=== PATIENT | female | born 1955 | race Caucasian/White ===

== ENCOUNTER 2016-07-20 23:40 | Inpatient (IN) ==
[2016-07-21] MEDS ORDERED: 0.9 % SODIUM CHLORIDE 1,000 ML IV ONE (00:02)
[2016-07-21 00:59] LABS: Basophils # (Auto) 0.1 K/mcL (0.0-0.3); Basophils % (Auto) 0.6 % (0.0-2.0); Eosinophils # (Auto) 0.1 K/mcL (0.0-0.7); Granulocytes % (Auto) 63.3 % (38.0-78.0); Lymphocytes # (Auto) 2.6 K/mcL (1.5-4.8); Lymphocytes % (Auto) 26.7 % (15.5-49.0); Mean Cell Volume 86.5 fL (80.0-100.0); Mean Corpuscular HGB Conc 33.8 g/dL (31.0-36.0); Mean Corpuscular Hemoglobin 29.2 pg (26.0-34.0); Monocytes # (Auto) 0.8 K/mcL (0.1-0.9); Monocytes % (Auto) 8.4 % (1.0-12.0); Platelet Count 290 K/mcL (140-440); Red Cell Distribution Width 14.6 % (11.5-14.5)
[2016-07-21 01:11] LABS: ALT/SGPT 19 U/l (0-40); Albumin 3.8 gm/dL (3.2-5.2); Albumin/Globulin Ratio 1.7 (1.0-2.3); Alkaline Phosphatase 84 U/L (39-117); Blood Urea Nitrogen 18 mg/dl (6-20)
[2016-07-21 02:36] LABS: Appearance,Urine CLEAR; Bilirubin,Urine NEG (NEG); Color,Urine YELLOW; Glucose,Urine (UA) NEGATIVE (NEG); Leukocyte Esterase,Urine NEG /uL (NEG); Nitrate,Urine NEG (NEG); Protein,Urine NEG (NEG); Specific Gravity,Urine 1.019 (1.000-1.035); Urine Blood NEG mg/dL (<0.03); Urobilinogen,Urine NEG (NEG)
[2016-07-21] MEDS ORDERED: ONDANSETRON 4 MG/2 ML VIAL IV PRN (04:27)
[2016-07-21] MEDS ORDERED: MAGNESIUM HYDROXIDE 30 ML ORAL.SUSP PO PRN (04:27)
[2016-07-21] MEDS ORDERED: DOCUSATE SODIUM 100 MG CAPSULE PO PRN (04:27)
[2016-07-21] MEDS ORDERED: POTASSIUM CHLORIDE 20 MEQ/10 ML VIAL IV ONE (04:58)
[2016-07-21] MEDS: POTASSIUM CHLORIDE 20 MEQ in 0.45 % SODIUM CHLORIDE 1,000 ML IV SCH ×2 (05:30→16:45)
[2016-07-21] MEDS: 0.9 % SODIUM CHLORIDE 10 ML SYRINGE IV SCH ×3 (06:10→20:36)
[2016-07-21 08:06] LABS: ALT/SGPT 17 U/l (0-40); Albumin 3.7 gm/dL (3.2-5.2); Albumin/Globulin Ratio 1.7 (1.0-2.3); Alkaline Phosphatase 80 U/L (39-117); Bilirubin,Direct < 0.2 mg/dL (0.0-0.3); Blood Urea Nitrogen 16 mg/dl (6-20); Gamma Glutamyl Transpeptidase 15 U/L (5-36); Magnesium 2.5 mg/dL (1.6-2.5); Uric Acid 0.8 mg/dL (2.5-8.0)
--- NOTE | 2016-07-21 08:16 | XRay Report ---
HISTORY: Reason for Exam:Weakness FINDINGS: The lungs are clear. The heart size and pulmonary vasculature are normal. The mediastinum and jerman are normal. Patient is leaning to the right which is probably due to patient positioning and less likely scoliosis in the lumbar spine. IMPRESSION: Normal exam Interpreted and Authenticated by: Will Charles 07/21/16
[2016-07-21] MEDS ORDERED: POTASSIUM CHLORIDE 40 MEQ in DEXTROSE 5% IN WATER 500 ML IV ONE (08:46)
[2016-07-21] MEDS: HEPARIN 5,000 UNIT/ML VIAL SQ SCH ×2 (09:09→20:36)
[2016-07-21] MEDS: ACETAMINOPHEN 325 MG TABLET PO PRN ×3 (09:13→23:42)
--- NOTE | 2016-07-21 10:18 | Internal Med History&Physical ---
Medical - H&P: HPI Patient information: Note initiated : 07/21/16 at 10:16 am Service Date, if different from initiated Date: Pt evaluated around 0440 this am. I could not document due to multiple computers not working, system would not let me log on. Patient: Stephanie Bellamy 61 y/o F admitted on 07/21/16 for Increased Weakness. History of present illness: Ms. Bellamy is a 61 year old female he was admitted around 4:00 this morning. We were having computer difficulties, and I was unable to access our EMR at that time. this patient was diagnosed with MS between 10 and 15 years ago. She is normally followed by Dr. Akins, of neurology. Herbramsesfriend of many years, whom she lives with, brought her to the emergency room last night, saying she had become increasingly weak over the last 3 days and he could no longer manage getting her in and out of bed. The patient presented as rather confused. It took her a long time to answer questions, and it is not clear that her questions are reliable. She agrees that her weakness has been worse for the last 3 or so days. She says she has had a headache for the last day or so, encompassing her whole head. She admits that she has been sitting outside lately, to smoke cigarettes and agrees that being out in the heat tends to make her feel worse.Otherwise, she could not recall fever or chills changes in visionor new ear symptoms, sore throat or cough, chest pain or palpitations, shortness of breath or wheezing, abdominal pain, nausea or vomiting, diarrhea or constipation. She has had bladder incontinence, but otherwise denies dysuria. eR evaluation showed low potassium, but no other obvious infection or specific cause for her symptoms. her significant other recently had spine surgery, and cannot manage carrying her full weight in caring for her at home. The patient was admitted for observation, to try to find the cause of her symptoms, and to treat accordingly. past medical history: Multiple sclerosis for at least [address] Akins. Depression,anxiety History of seizures Hypothyroidism Reported memory loss Bladder dysfunction -neurogenic bladder Ongoing tobacco abuse Past history of alcohol abuse Cervical dysplasia Menopause. current medications: They brought in a basket of pills. keppra 1000 mg twice a day Baclofen 20 mg1-1/2 tabs3 times a day Mirtazapine 45 mg daily at bedtime HCTZ 25 mg daily Flomax 0.4 mg2 tabs daily at bedtime Levothyroxine 50 g daily Nortriptyline 25 mg daily at bedtime Lexapro 20 mg daily Aspirin 81 mg daily Donepezil 5 mg daily some type of injection, monthly Allergies: Patient reports no known drug allergies Family history:She believes her father with Alzheimer's. She cannot recall the cause of her mother's . She is unsure of her siblings health. She has 2 children who are alive and well. Social history: The patient lives with her boyfriend. He works, so she is alone quite a few hours a day. She smokes about 1 pack of cigarettes per day. She says she drinks about 1 alcohol-containing drink per week. She denies illegal drug use. Medical - H&P: Meds Home Medications Medication Instructions Recorded Confirmed Type baclofen 20 mg tablet 30 mg PO TID tab 08/28/14 07/21/16 History acetaminophen 500 mg tablet 500 mg PO Q4H PRN tab 01/21/16 05/12/16 History aspirin 81 mg tablet,delayed 81 mg PO QDAY 01/21/16 07/21/16 History release docusate sodium 100 mg capsule 100 mg PO BID 01/21/16 05/12/16 History levetiracetam 500 mg tablet 1,000 mg PO BID 1 Days 01/21/16 07/21/16 History mirtazapine 15 mg disintegrating 45 mg PO HS 30 Days 01/21/16 05/12/16 History tablet polyethylene glycol 1450 powder See Dose Instructions .ROUTE 01/21/16 05/12/16 History .MEDSUPPLY escitalopram 20 mg tablet 20 mg PO QDAY #90 tab 04/02/16 07/21/16 Rx famotidine 20 mg tablet 20 mg PO BID 30 Days 04/24/16 05/12/16 Rx nortriptyline 25 mg capsule 25 mg PO QHS #30 cap 04/24/16 07/21/16 Rx hydrochlorothiazide 25 mg tablet 25 mg PO QDAY #90 tab 05/06/16 07/21/16 Rx tamsulosin 0.4 mg capsule 0.8 mg PO Q24H #90 cap 05/12/16 07/21/16 Rx levothyroxine 50 mcg tablet 50 mcg PO QDAY 30 Days 06/06/16 07/21/16 Rx Donepezil [Aricept] 5 mg PO DAILY 07/21/16 07/21/16 History Allergies Allergy/AdvReac Type Severity Reaction Status Date / Time No Known Drug Intolerances Allergy Unknown None Stated Verified 05/12/16 10:54 Medical - H&P: Exam - Constitutional Vitals: Temp Pulse Resp BP Pulse Ox 97.8 F 82 18 115/76 99 07/21/16 07:07/21/16 04:27 07/21/16 07:07/21/16 07:07/21/16 07:17 on exam, she is a well-developed well-nourished female, who appears quite fatigued. She is very slow to answer questions, and her reliability as a historian is questionable. ead: Normocephalic, atraumatic. Eyes: Her gaze is slightly disconjugate. Otherwise, EOMI, anicteric, PERRLA. Ears: TMs and canals are clear. Pharynx: Mucosa is markedly dry. Teeth are in only fair condition. Posterior pharynx is only partially seen, but appears normal. Neck: Appears supple, without obvious lymphadenopathy, JVD, thyromegaly, bruits. Cardiac exam: Shows regular rate and rhythm, with normal S1 and S2, without murmurs, rubs, gallops. Lungs: Are clear to auscultation, without rales, rhonchi, wheezes. Abdomen: Is soft and nontender, without obvious masses. Bowel sounds are active. She did have a bladder scan showing greater than 600 mLof urine. Shannon catheter was placed. Extremities: Show no cyanosis, clubbing, edema. Skin exam: Showed no rashes or other worrisome lesions. Neurologic exam:The patient is awake, but somewhat groggy. She is oriented. Affect is a little unusual. cranial nerves, other than disconjugate gaze, appear grossly intact. motor exam: She exhibits generalized weakness in all extremities but this is generally nonfocal although she seems to have more strength and dexterity in her arms than in her legs. Cerebellar exam shows a very dysmetric [id number] and [id number] exam. she has difficulty participating in an examination for pronator drift due to her not really being strong enough to hold her hands up for that long. Medical - H&P: Reslt - Labs CBC & Chem 7: 07/21/16 00:10 07/21/16 05:56 Labs: BMP 07/21/16 05:56 Sodium 143 Potassium 3.1 L Chloride 105 Carbon Dioxide 25 BUN 16 Creatinine 0.8 Glucose 84 Calcium 8.3 L Liver Function 07/21/16 Range/Units 05:56 Total Bilirubin < 0.2 (0.0-1.0) mg/dL Direct Bilirubin < 0.2 (0.0-0.3) mg/dL GGT 15 (5-36) U/L AST 21 (0-37) U/l ALT 17 (0-40) U/l Alkaline Phosphatase 80 (39-117) U/L Albumin 3.7 (3.2-5.2) gm/dL 07/21: troponin is less than 0.01 urinalysis shows pH of 5.0, specific gravity 1.019, 5 ketones, negative nitrites , negative leukocyte esterase EKGshows normal sinus rhythm at a rate of 81, with possible P pulmonale, low voltage chest x-ray shows clear lungs, and exam is considered normal. Medical - H&P: A/P (1) Exacerbation of multiple sclerosis Current visit: Yes Status: Acute (2) Hypokalemia Current visit: Yes Status: Acute (3) Weakness Current visit: Yes Status: Acute (4) Neurogenic bladder Current visit: No Status: Acute (5) Tobacco abuse Current visit: No Status: Acute - Narrative A/P Narrative: #1. Weakness/neurologic. She has no obvious infection to explain her sudden decline. I suspect this is a multiple sclerosis flare. I tried to contact Dr. Lin, .but her office is apparently not economic consultant for the weekend -I will start the patient on high-dose IV Solu-Medrol and assess response. I will try again to contact neurology tomorrow,after the holiday weekend. -physical therapy evaluation. -social work consult. The patient's significant other reported to the ER that he is finding her increasingly difficult to care for. She may need extra services at home . -continue baclofen -make sure her vitamin D level has been checked. -Shannon catheter was placed for her neurogenic bladder, with urine retention. -reported history of seizures. Continue Keppra. #2. Fluids and nutrition. Patient presents with hypokalemia, likely due to HCTZ and dehydration. HCTZ will beheld. -Replace potassium IV, replacement IV fluids. #3. CODE STATUS:The patientseems to indicate she wants to be a DNR, but did not have paperwork, and her history did not appear reliable. She suggest we contact her son Abram and who may have hermedical power of real estate attorney. #4. Tobacco abuse.- -The patient should be discouraged from smoking. She will be offered a NicoDerm patch. #5. DVT prophylaxis: Subcutaneous heparin, support hose. #6.Hypocalcemia Check ionized calcium. #7. Psychiatric. -depression.Continue Lexapro. Continue mirtazapine at night. Continue nortriptyline at night - Reported memory loss. Continue donepezil. -past history of alcohol abuse. She denies excess drinking at this time. #8. . neurogenic bladder. Continue tamsulosin, per Dr. Wang. #9. Endocrine. Hypothyroidism. Continue levothyroxine. #10. Hypertension? we are holding HCTZ.continue aspirin. #11. GI. patient was previously taking famotidine, for uncertain reasons. This visit took approximately 70 minutes early this morning, to review her history, interview and examine her, review her case with the ER M.D. and with nursing staff, and write orders. Spent approximately another 35 minutes ater this morning,to meet with an examine her again. I now have access to some of her computer records, so those were reviewed as well. I tried to contact her neurologist, but apparently they are not on-call for the weekend. I will try again tomorrow. otal time spent on the floor addressing this patient's needs today, approximately 100 minutes. Medical - H&P: Qual - Stroke Symptom Onset Unknown: No - VTE Deep Vein Thrombosis/Pulmonary Embolism Present on Admission: No
[2016-07-21] MEDS ORDERED: NICOTINE 14 MG PATCH TOPICAL PRN (15:47)
[2016-07-22] MEDS: POTASSIUM CHLORIDE 20 MEQ in 0.45 % SODIUM CHLORIDE 1,000 ML IV SCH ×4 (03:00→23:33)
[2016-07-22] MEDS: 0.9 % SODIUM CHLORIDE 10 ML SYRINGE IV SCH ×3 (04:05→22:00)
[2016-07-22] MEDS ORDERED: BISACODYL 10 MG SUPP.RECT PR PRN (04:57)
[2016-07-22] MEDS: DOCUSATE SODIUM 100 MG CAPSULE PO SCH ×2 (08:59→19:58)
[2016-07-22] MEDS: ACETAMINOPHEN 325 MG TABLET PO PRN (08:59)
[2016-07-22] MEDS: HEPARIN 5,000 UNIT/ML VIAL SQ SCH ×2 (09:01→20:01)
[2016-07-22] MEDS: methylPREDNISolone SOD SUCC 1,000 MG in 0.9 % SODIUM CHLORIDE 100 ML IV SCH (10:08)
[2016-07-22 10:41] LABS: Ionized Calcium 1.11 mmol/L (1.16-1.32)
[2016-07-22 10:57] LABS: ALT/SGPT 20 U/l (0-40); Albumin 3.1 gm/dL (3.2-5.2); Albumin/Globulin Ratio 1.3 (1.0-2.3); Alkaline Phosphatase 71 U/L (39-117); Bilirubin,Direct < 0.2 mg/dL (0.0-0.3); Blood Urea Nitrogen 13 mg/dl (6-20); Gamma Glutamyl Transpeptidase 12 U/L (5-36)
[2016-07-22] MEDS ORDERED: LORazepam 2 MG/ML VIAL IV ONE (11:23)
[2016-07-22] MEDS ORDERED: LORazepam 2 MG/ML VIAL ONE (11:30)
--- NOTE | 2016-07-22 12:06 | Internal Med Progress Note ---
Medical - PN: Subj Patient information: Note initiated : 07/22/16 at 12:06 pm Service Date, if different from initiated Date: [] Patient: Stephanie Bellamy 61 y/o F admitted on 07/21/16 for Increased Weakness/ Hypokalemia, MS. Chief Complaint: [] Interval history: July 21, 2016: History of present illness: Ms. Bellamy is a 61 year old female he was admitted around 4:00 this morning. We were having computer difficulties, and I was unable to access our EMR at that time. this patient was diagnosed with MS between 10 and 15 years ago. She is normally followed by Dr. Akins, of neurology. Her boyfriend of many years, whom she lives with, brought her to the emergency room last night, saying she had become increasingly weak over the last 3 days and he could no longer manage getting her in and out of bed. The patient presented as rather confused. It took her a long time to answer questions, and it is not clear that her questions are reliable. She agrees that her weakness has been worse for the last 3 or so days. She says she has had a headache for the last day or so, encompassing her whole head. She admits that she has been sitting outside lately, to smoke cigarettes and agrees that being out in the heat tends to make her feel worse.Otherwise, she could not recall fever or chills changes in vision or new ear symptoms, sore throat or cough, chest pain or palpitations, shortness of breath or wheezing, abdominal pain, nausea or vomiting, diarrhea or constipation. She has had bladder incontinence, but otherwise denies dysuria. eR evaluation showed low potassium, but no other obvious infection or specific cause for her symptoms. her significant other recently had spine surgery, and cannot manage carrying her full weight in caring for her at home. The patient was admitted for observation, to try to find the cause of her symptoms, and to treat accordingly. July 22: today, the patient reported she was feeling a bit better this morning but remains very weak. Her caregivers reported that prior to a few days ago, she was strong enough to stand and pivot and help with transfers. She was unable to get upor bear any weight at all and so her arrival here. Nursing staff to try to get her up to a chair, but the patient became extremely anxious and refused to move out of bed. his morning, she continues to have a mild frontal headache, but otherwise denies fever or chills chest pain or shortness of breath, abdominal pain, nausea or vomiting, diarrhea, dysuria. -Her significant other is here this afternoon, and he reports a similar timeline. He says she has been complaining of headaches for several weeks now. Someone had reported to me that the patient recently fell in the bathroom about 1 week ago, but he cannot recall any falls. He says she just has not been able to participate in transferring at all for the last few days. -he has been talking with our porter sample case today, and he agrees that she cannot be managed at home alone in her current state, and he would like to consider having her go to rehabilitation for strengthening prior to returning home. -after I saw her this morning, nursing staff reported that the patient was curling up into a ball,and seemed very anxious. It was thenrealized thatnone of her home medications were ordered in our computer system. Again,we were having a great many computer problems when she was admitted. I thought that I had entered in most of her medications, but apparently most of those did not show up in her MAR. those were reordered a little while ago, and she now has them on board. currently, she is very tremulous, and not very verbal. it appears she might be hallucinating. she is really not able to give a reliable history at this time. - Constitutional Vitals: Vital Signs Temp Pulse Resp BP Pulse Ox 98.8 F 80 30 H 135/80 95 07/22/16 11:44 07/22/16 03:25 07/22/16 11:44 07/22/16 11:44 07/22/16 11:44 Period Temp Pulse Resp BP Sys/Munson Pulse Ox Last 24 Hr 97.6 F-99.0 F 80-97 16-30 106-135/67-88 95-99 Intake and Output 07/21/16 07/22/16 07/22/16 21:59 05:59 13:59 Intake Total 1510 / 1510 1185 / 1185 600 / 600 Output Total 600 / 600 1325 / 1325 800 / 800 Balance 910 / 910 -140 / -140 -200 / -200 Weight 159 lb 8 oz Intake & Output: Intake & Output 07/21/16 07/22/1607/22/17 21:59 05:59 13:59 Intake Total 1510 / 1510 1185 / 1185 600 / 600 Output Total 600 / 600 1325 / 1325 800 / 800 Balance 910 / 910 -140 / -140 -200 / -200 Weight 159 lb 8 oz Intake: IV 1010 / 1010 1010 / 1010 Potassium Chloride 20 Meq 1010 / 1010 1010 / 1010 In Sodium Chloride 0.45% 1,000 ml @ 100 mls/hr IV .Q10H6M ANN Rx#: [id number] Oral 500 / 500 175 / 175 600 / 600 Output: Urine Catheter Amount 600 / 600 1325 / 1325 800 / 800 Other: Meal Dinner Percent of Meal Consumed 75% Feeding Ability Assist with Tray Set Up # Bowel Movements 0 n exam,this morning, she was calm and cooperative, but it was not clear that she wasn't a bit confused. This afternoon,she appears to be hallucinating, and seems to be grabbing at things in the air. She does answer questions, but probably not appropriately. Her significant other is sitting at the bedside and is holding her hands. Neck is supple without obvious lymphadenopathy. Cardiac exam shows regular rate and rhythm. Lungs are clear to auscultation. Abdomen is soft and nontender. Extremities show no significant edema. Neurologic: Cranial nerves continue to appear grosslynonfocal, although her gaze is a bit disconjugate. he is awake and alert, but confused. She is mostly nonverbal. She appears to be moving upper extremities equally. She has minimal movement of her lower extremities Medical - PN: Obj Da - Labs CBC & Chem 7: 07/21/16 00:10 07/22/16 04:15 Labs: Abnormal Lab Results 07/22/16 07/22/16 07/21/16 04:15 04:15 05:56 Potassium 3.1 L Uric Acid 1.0 L 0.8 L Calcium 8.0 L 8.3 L Ionized Calcium Milana 1.11 L Phosphorus 2.4 L Lactate Dehydrogenase 258 H Total Protein 5.4 L Albumin 3.1 L 25-OH Vitamin D Total 10.91 L July 22: MAXIMUM TEMPERATURE was 99.0 early this morning, respiratory rate varies from 16 -30 07/21: troponin is less than 0.01 urinalysis shows pH of 5.0, specific gravity 1.019, 5 ketones, negative nitrites , negative leukocyte esterase EKG shows normal sinus rhythm at a rate of 81, with possible P pulmonale, low voltage chest x-ray shows clear lungs, and exam is considered normal. Meds: Medications Acetaminophen (Tylenol) 650 mg PO Q6HP PRN PRN Reason: PAIN/FEVER > 101 Last Admin: 07/22/16 08:59 Dose: 650 mg Aspirin (Aspirin) 81 mg PO DAILY [facility] Baclofen (Lioresal) 20 mg PO TID [facility] Bisacodyl (Dulcolax) 10 mg ND Q2-3DAYS PRN PRN Reason: Constipation Docusate Sodium (Colace) 100 mg PO BID [facility] Last Admin: 07/22/16 08:59 Dose: 100 mg Donepezil HCl (Aricept) 5 mg PO HS [facility] Escitalopram Oxalate (Lexapro) 20 mg PO QDAY [facility] Heparin Sodium (Porcine) (Heparin) 5,000 unit SQ Q12 [facility] Last Admin: 07/22/16 09:01 Dose: 5,000 unit Potassium Chloride 20 meq/ (Sodium Chloride) 1,010 mls @ 100 mls/hr IV .Q10H6M [facility] Last Admin: 07/22/16 03:00 Dose: 100 mls/hr Methylprednisolone Sodium Succinate 1,000 mg/ Sodium Chloride 100 mls @ 100 mls /hr IV DAILY [facility] Stop: 07/24/16 09:59 Last Admin: 07/22/16 10:08 Dose: 100 mls/hr Levetiracetam (Keppra) 1,000 mg PO BID [facility] Levothyroxine Sodium (Synthroid) 50 mcg PO ACB [facility] Magnesium Hydroxide (Milk Of Magnesia) 30 ml PO DAILYP PRN PRN Reason: Constipation Mirtazapine (Remeron) 45 mg PO HS [facility] Nicotine (Nicoderm) 14 mg TOPICAL DAILY@1000 PRN PRN Reason: Nicotine Cravings Nortriptyline HCl (Pamelor) 25 mg PO QHS [facility] Ondansetron HCl (Zofran) 4 mg IV Q6HP PRN PRN Reason: Nausea And Vomiting Sodium Chloride (Saline Flush) 10 ml IV Q8 [facility] Last Admin: 07/22/16 04:05 Dose: Not Given Tamsulosin HCl (Flomax) 0.8 mg PO DAILY [facility] Medical - PN: A/P - Time Spent With Patient Total time spent is greater than 50% in coordination of care (as documented) at patient's floor/unit and/or counseling patient: Greater than 35 minutes (1) Exacerbation of multiple sclerosis Status: Acute Current Visit: Yes (2) Hypokalemia Status: Acute Current Visit: Yes (3) Weakness Status: Acute Current Visit: Yes (4) Neurogenic bladder Status: Acute Current Visit: No (5) Tobacco abuse Status: Acute Current Visit: No - Narrative A/P Narrative: #1. Weakness/neurologic. She has no obvious infection to explain her sudden decline. I suspect this is a multiple sclerosis flare. -I spoke with her neurologist, Dr. Lin, today. She suggested that we order an MRI with contrast of the brain, and cervical and thoracic spine, looking for signs of a flare. However, the patient would be unable to tolerate that test, which might last as long as 3 hours in her current state. -Dr. Lin agrees with IV steroids. -i will order a CT scan of her brain for later this afternoon, to rule out bleeding and sinusitis, regarding her complaints of headache. e will try to get the MRI when she appears more able to tolerate it. -dr. Lin also suggested that if the patient does not improve, we may want to get a spinal tap. -physical therapy evaluation. -social work consult. The patient's significant other reported to the ER that he is finding her increasingly difficult to care for. She may need extra services at home . case management is meeting with the patient and her significant other today, to discuss rehabilitation options. -unfortunately, a lot of her usual medications did not get resumed yesterday, so those were resumed today. I am hoping that once those medications kick in, her mental status will return to one that is more normal for her. -continue baclofen -vitamin D level came back very low today. The patient will be started on both calcium and vitamin D supplements. -Shannon catheter was placed for her neurogenic bladder, with urine retention. -reported history of seizures. Continue Keppra. -she is a bit tremulous at this time, and that may be from missing her Keppra dose last night. #2. Fluids and nutrition. Patient presents with hypokalemia, likely due to HCTZ and dehydration. HCTZ will be held. -Replace potassium IV, replacement IV fluids. potassium is improved today. #3. CODE STATUS:The patient seems to indicate she wants to be a DNR, but did not have paperwork, and her history did not appear reliable. She suggest we contact her son Abram and who may have her medical power of evp and chief operating officer. #4. Tobacco abuse.- -The patient should be discouraged from smoking. She will be offered a NicoDerm patch. #5. DVT prophylaxis: Subcutaneous heparin, support hose. #6.Hypocalcemia Check ionized calcium. -calcium is low. Start oral calcium replacement. #7. Psychiatric. -depression.Continue Lexapro. Continue mirtazapine at night. Continue nortriptyline at night - Reported memory loss. Continue donepezil. -past history of alcohol abuse. She denies excess drinking at this time. #8. . neurogenic bladder. Continue tamsulosin, per Dr. Wang. #9. Endocrine. Hypothyroidism. Continue levothyroxine. #10. Hypertension? we are holding HCTZ.continue aspirin. #11. GI. patient was previously taking famotidine, for uncertain reasons. #12. Endocrine. Vitamin D deficiency, severe. Replace vitamin D, and calcium. this visit has taken approximately 45 minutes today, to review patient's test results, interview and examine her this morning review plan of care with nursing and other staff, and then to meet again with the patient and her significant other this afternoon, and then review her case with neurology. Medical - PN: Qual - Stroke Symptom Onset Unknown: No - VTE Deep Vein Thrombosis/Pulmonary Embolism Present on Admission: No
[2016-07-22] MEDS: levETIRAcetam 500 MG TABLET PO SCH ×2 (12:22→19:58)
[2016-07-22] MEDS: BACLOFEN 10 MG TABLET PO SCH ×3 (12:22→19:58)
[2016-07-22] MEDS ORDERED: ERGOCALCIFEROL (VITAMIN D2) 50,000 UNIT CAPSULE PO ONE (14:01)
[2016-07-22] MEDS: TAMSULOSIN 0.4 MG CAPSULE PO SCH (15:08)
[2016-07-22] MEDS: MIRTAZAPINE 15 MG TABLET PO SCH (19:57)
[2016-07-22] MEDS: VITAMIN D3 1,000 UNIT TABLET PO SCH (19:57)
[2016-07-22] MEDS: DONEPEZIL 10 MG TABLET PO SCH (19:58)
[2016-07-22] MEDS: CALCIUM CARBONATE 500 MG TAB.CHEW CHEWED SCH (19:59)
[2016-07-22] MEDS: NORTRIPTYLINE 25 MG CAPSULE PO SCH (20:00)
[2016-07-22] MEDS ORDERED: DOCUSATE SODIUM 100 MG CAPSULE PO SCH (21:00)
[2016-07-22] MEDS: LORazepam 2 MG/ML VIAL IV PRN (23:33)
[2016-07-23] MEDS: POTASSIUM CHLORIDE 20 MEQ in 0.45 % SODIUM CHLORIDE 1,000 ML IV SCH ×3 (03:00→23:55)
[2016-07-23] MEDS: 0.9 % SODIUM CHLORIDE 10 ML SYRINGE IV SCH ×3 (05:03→22:51)
[2016-07-23 06:01] LABS: ALT/SGPT 22 U/l (0-40); Albumin 3.4 gm/dL (3.2-5.2); Albumin/Globulin Ratio 1.4 (1.0-2.3); Alkaline Phosphatase 78 U/L (39-117); Bilirubin,Direct < 0.2 mg/dL (0.0-0.3); Blood Urea Nitrogen 12 mg/dl (6-20); Gamma Glutamyl Transpeptidase 14 U/L (5-36); Magnesium 2.2 mg/dL (1.6-2.5); Uric Acid 1.8 mg/dL (2.5-8.0)
[2016-07-23] MEDS: LEVOTHYROXINE 50 MCG TABLET PO SCH (06:53)
[2016-07-23] MEDS: ASPIRIN 81 MG TAB.CHEW PO SCH (09:04)
[2016-07-23] MEDS: ESCITALOPRAM 20 MG TABLET PO SCH (09:04)
[2016-07-23] MEDS: CALCIUM CARBONATE 500 MG TAB.CHEW CHEWED SCH ×2 (09:05→20:13)
[2016-07-23] MEDS: TAMSULOSIN 0.4 MG CAPSULE PO SCH (09:05)
[2016-07-23] MEDS: DOCUSATE SODIUM 100 MG CAPSULE PO SCH ×2 (09:05→20:09)
[2016-07-23] MEDS: HEPARIN 5,000 UNIT/ML VIAL SQ SCH ×2 (09:05→20:13)
[2016-07-23] MEDS: methylPREDNISolone SOD SUCC 1,000 MG in 0.9 % SODIUM CHLORIDE 100 ML IV SCH (09:05)
[2016-07-23] MEDS: BACLOFEN 10 MG TABLET PO SCH ×3 (09:05→20:08)
[2016-07-23] MEDS: levETIRAcetam 500 MG TABLET PO SCH ×2 (09:05→20:10)
[2016-07-23] MEDS: VITAMIN D3 1,000 UNIT TABLET PO SCH ×2 (09:05→20:10)
--- NOTE | 2016-07-23 09:12 | Internal Med Progress Note ---
Medical - PN: Subj Patient information: Note initiated : 07/23/16 at 9:12 am Patient: Stephanie Bellamy 61 y/o F admitted on 07/21/16 for Increased Weakness/ Hypokalemia, MS. Interval history: July 21, 2016: History of present illness: Ms. Bellamy is a 61 year old female he was admitted around 4:00 this morning. We were having computer difficulties, and I was unable to access our EMR at that time. this patient was diagnosed with MS between 10 and 15 years ago. She is normally followed by Dr. Akins, of neurology. Her boyfriend of many years, whom she lives with, brought her to the emergency room last night, saying she had become increasingly weak over the last 3 days and he could no longer manage getting her in and out of bed. The patient presented as rather confused. It took her a long time to answer questions, and it is not clear that her questions are reliable. She agrees that her weakness has been worse for the last 3 or so days. She says she has had a headache for the last day or so, encompassing her whole head. She admits that she has been sitting outside lately, to smoke cigarettes and agrees that being out in the heat tends to make her feel worse.Otherwise, she could not recall fever or chills changes in vision or new ear symptoms, sore throat or cough, chest pain or palpitations, shortness of breath or wheezing, abdominal pain, nausea or vomiting, diarrhea or constipation. She has had bladder incontinence, but otherwise denies dysuria. eR evaluation showed low potassium, but no other obvious infection or specific cause for her symptoms. her significant other recently had spine surgery, and cannot manage carrying her full weight in caring for her at home. The patient was admitted for observation, to try to find the cause of her symptoms, and to treat accordingly. July 22: today, the patient reported she was feeling a bit better this morning but remains very weak. Her caregivers reported that prior to a few days ago, she was strong enough to stand and pivot and help with transfers. She was unable to get upor bear any weight at all and so her arrival here. Nursing staff to try to get her up to a chair, but the patient became extremely anxious and refused to move out of bed. his morning, she continues to have a mild frontal headache, but otherwise denies fever or chills chest pain or shortness of breath, abdominal pain, nausea or vomiting, diarrhea, dysuria. -Her significant other is here this afternoon, and he reports a similar timeline. He says she has been complaining of headaches for several weeks now. Someone had reported to me that the patient recently fell in the bathroom about 1 week ago, but he cannot recall any falls. He says she just has not been able to participate in transferring at all for the last few days. -he has been talking with our case operator today, and he agrees that she cannot be managed at home alone in her current state, and he would like to consider having her go to rehabilitation for strengthening prior to returning home. -after I saw her this morning, nursing staff reported that the patient was curling up into a ball,and seemed very anxious. It was thenrealized thatnone of her home medications were ordered in our computer system. Again,we were having a great many computer problems when she was admitted. I thought that I had entered in most of her medications, but apparently most of those did not show up in her MAR. those were reordered a little while ago, and she now has them on board. currently, she is very tremulous, and not very verbal. it appears she might be hallucinating. she is really not able to give a reliable history at this time. July 23: today, the patient says she is feeling quite a bit better, and more like herself. She continues to complain of a headache, but otherwise doesn't have any new complaints. he was able to lie still and follow directions for her head CT this morning. Her head CT is abnormal, and does show multiple oldMS plaques, but there is a new lesion noted as well. There is no sign of a subdural or obvious infection, and they did not comment on any sinusitis. -white blood cell count is a little more elevated today, for uncertain reasons. The patient is now afebrile. otherwise, she deniesnew eye or ear changes, sore throat or cough, chest pain or palpitations, shortness of breath, abdominal pain, nausea or vomiting or diarrhea. She says she did have a good bowel movement this morning,and is happy about that. She continues with bladder incontinence. - Constitutional Vitals: Vital Signs Temp Pulse Resp BP Pulse Ox 96.8 F L 110 H 22 125/86 93 07/23/16 07:09 07/23/16 07:08 07/23/16 07:09 07/23/16 07:09 07/23/16 07:09 Period Temp Pulse Resp BP Sys/Munson Pulse Ox Last 24 Hr 96.8 F-98.8 F 86-110 18-30 110-135/75-86 90-95 Intake and Output 07/22/16 07/23/16 07/23/16 21:59 05:59 13:59 Intake Total 480 / 480 1210 / 1210 Output Total 100 / 100 1375 / 1375 Balance 380 / 380 -165 / -165 Weight 163 lb 8 oz Intake & Output: Intake & Output 07/22/16 07/23/16 07/23/16 21:59 05:59 13:59 Intake Total 480 / 480 1210 / 1210 Output Total 100 / 100 1375 / 1375 Balance 380 / 380 -165 / -165 Weight 163 lb 8 oz Intake: IV 1010 / 1010 Potassium Chloride 20 Meq 1010 / 1010 In Sodium Chloride 0.45% 1,000 ml @ 100 mls/hr IV .Q10H6M [facility] Rx#: [id number] Oral 480 / 480 200 / 200 Output: Urine Catheter Amount 100 / 100 1375 / 1375 Other: Meal Dinner Percent of Meal Consumed 75% Feeding Ability Needs Supervision on exam, she is awake and alert. She answers questions, but still seems a bit forgetful. she is still lying, leaning to the left side of her bed. She reports that is just more comfortable for her. Neck appears supple, without obvious JVD. cardiac exam shows regular rate and rhythm. Lungs are clear to auscultation. Abdomen is soft and nontender, with active bowel sounds. Extremities show no edema. Neurologic: The patient is alert and oriented, and in much less distress today. She continues to have dysmetric movements of her arms, with reasonable strength. She continues to have very minimal movement of her legs. Medical - PN: Obj Da - Labs CBC & Chem 7: 07/23/16 08:25 07/23/16 11:25 Labs: Abnormal Lab Results 07/23/16 07/22/16 07/22/16 04:23 04:15 04:15 Potassium Carbon Dioxide 20 L Glucose 122 H Uric Acid 1.8 L 1.0 L Calcium 8.0 L Ionized Calcium Milana 1.11 L Phosphorus 2.4 L AST 46 H Lactate Dehydrogenase 287 H Total Protein 5.4 L Albumin 3.1 L 25-OH Vitamin D Total 10.91 L 07/21/16 05:56 Potassium 3.1 L Carbon Dioxide Glucose Uric Acid 0.8 L Calcium 8.3 L Ionized Calcium Milana Phosphorus AST Lactate Dehydrogenase 258 H Total Protein Albumin 25-OH Vitamin D Total July 23: this shows multiple burned out MS plaques in the frontal and parietal lobes. There is a small new lesion inferiorly in the right putamen which could be a new MS plaque versus an infarct. MRI recommended. 07/21: troponin is less than 0.01 urinalysis shows pH of 5.0, specific gravity 1.019, 5 ketones, negative nitrites , negative leukocyte esterase EKG shows normal sinus rhythm at a rate of 81, with possible P pulmonale, low voltage chest x-ray shows clear lungs, and exam is considered normal. Meds: Medications Acetaminophen (Tylenol) 650 mg PO Q6HP PRN PRN Reason: PAIN/FEVER > 101 Last Admin: 07/22/16 08:59 Dose: 650 mg Aspirin (Aspirin) 81 mg PO DAILY [facility] Last Admin: 07/23/16 09:04 Dose: 81 mg Baclofen (Lioresal) 20 mg PO TID [facility] Last Admin: 07/23/16 09:05 Dose: 20 mg Bisacodyl (Dulcolax) 10 mg KS Q2-3DAYS PRN PRN Reason: Constipation Calcium Carbonate/Glycine (Tums) 500 mg CHEWED BID [facility] Last Admin: 07/23/16 09:05 Dose: 500 mg Docusate Sodium (Colace) 100 mg PO BID [facility] Last Admin: 07/23/16 09:05 Dose: 100 mg Donepezil HCl (Aricept) 5 mg PO HS [facility] Last Admin: 07/22/16 19:58 Dose: 5 mg Escitalopram Oxalate (Lexapro) 20 mg PO QDAY [facility] Last Admin: 07/23/16 09:04 Dose: 20 mg Heparin Sodium (Porcine) (Heparin) 5,000 unit SQ Q12 [facility] Last Admin: 07/23/16 09:05 Dose: 5,000 unit Potassium Chloride 20 meq/ (Sodium Chloride) 1,010 mls @ 100 mls/hr IV .Q10H6M [facility] Last Admin: 07/23/16 03:00 Dose: 100 mls/hr Methylprednisolone Sodium Succinate 1,000 mg/ Sodium Chloride 100 mls @ 100 mls /hr IV DAILY [facility] Stop: 07/24/16 09:59 Last Admin: 07/23/16 09:05 Dose: 100 mls/hr Levetiracetam (Keppra) 1,000 mg PO BID [facility] Last Admin: 07/23/16 09:05 Dose: 1,000 mg Levothyroxine Sodium (Synthroid) 50 mcg PO ACB [facility] Last Admin: 07/23/16 06:53 Dose: 50 mcg Lorazepam (Ativan) 0.5 mg IV Q4-6HP PRN PRN Reason: ANXIETY/SEDATION Last Admin: 07/22/16 23:33 Dose: 0.5 mg Magnesium Hydroxide (Milk Of Magnesia) 30 ml PO DAILYP PRN PRN Reason: Constipation Mirtazapine (Remeron) 45 mg PO HS [facility] Last Admin: 07/22/16 19:57 Dose: 45 mg Nicotine (Nicoderm) 14 mg TOPICAL DAILY@1000 PRN PRN Reason: Nicotine Cravings Nortriptyline HCl (Pamelor) 25 mg PO QHS [facility] Last Admin: 07/22/16 20:00 Dose: 25 mg Ondansetron HCl (Zofran) 4 mg IV Q6HP PRN PRN Reason: Nausea And Vomiting Sodium Chloride (Saline Flush) 10 ml IV Q8 [facility] Last Admin: 07/23/16 05:03 Dose: Not Given Tamsulosin HCl (Flomax) 0.8 mg PO DAILY [facility] Last Admin: 07/23/16 09:05 Dose: 0.8 mg Vitamin D (Vitamin D3) 1,000 unit PO BID [facility] Last Admin: 07/23/16 09:05 Dose: 1,000 unit Medical - PN: A/P - Time Spent With Patient Total time spent is greater than 50% in coordination of care (as documented) at patient's floor/unit and/or counseling patient: (1) Exacerbation of multiple sclerosis Status: Acute Current Visit: Yes (2) Hypokalemia Status: Acute Current Visit: Yes (3) Weakness Status: Acute Current Visit: Yes (4) Neurogenic bladder Status: Acute Current Visit: No (5) Tobacco abuse Status: Acute Current Visit: No - Narrative A/P Narrative: #1. Weakness/neurologic. She has no obvious infection to explain her sudden decline. I suspect this is a multiple sclerosis flare. -I spoke with her neurologist, Dr. Lin. She suggested that we order an MRI with contrast of the brain, and cervical and thoracic spine, looking for signs of a flare. However, the patient would be unable to tolerate that test, which might last as long as 3 hours in her current state. -Dr. Lin agreed with IV steroids. -CT scan is suggestive of a new MS plaque, versus stroke. I will see if we can arrange for an MRI, but again have concerns about the patient's confusion and ability to lie still. -no bleeding r fracture is noted. -dr. Lin also suggested that if the patient does not improve, we may want to get a spinal tap. -social work consult. -continue baclofen -vitamin D level came back very low today. The patient will be started on both calcium and vitamin D supplements. -Shannon catheter was placed for her neurogenic bladder, with urine retention. -reported history of seizures. Continue Keppra. -she is a bit tremulous at this time, But this seems to be improved since resuming her usual medications. #2. Fluids and nutrition. Patient presents with hypokalemia, likely due to HCTZ and dehydration. HCTZ held. -Replace potassium IV, replacement IV fluids. potassium is improved today. #3. CODE STATUS:The patient seems to indicate she wants to be a DNR, but did not have paperwork, and her history did not appear reliable. She suggest we contact her son Abram and who may have her medical power of deputy commonwealth's attorney. #4. Tobacco abuse.- -The patient should be discouraged from smoking. She is offered a NicoDerm patch. #5. DVT prophylaxis: Subcutaneous heparin, support hose. #6.Hypocalcemia Check ionized calcium. -calcium is low. Start oral calcium replacement. #7. Psychiatric. -depression.Continue Lexapro. Continue mirtazapine at night. Continue nortriptyline at night - Reported memory loss. Continue donepezil. -past history of alcohol abuse. She denies excess drinking at this time. #8. . neurogenic bladder. Continue tamsulosin, per Dr. Wang. #9. Endocrine. Hypothyroidism. Continue levothyroxine. #10. Hypertension. controlled. we are holding HCTZ.continue aspirin. #11. GI. patient was previously taking famotidine, for uncertain reasons. #12. Endocrine. Vitamin D deficiency, severe. Replace vitamin D, and calcium. this visit has taken approximately 30 minutes today, to review patient's test results, interview and examine her, review plan of care with nursing and other staff, and write orders. Medical - PN: Qual - Stroke Symptom Onset Unknown: No - VTE Deep Vein Thrombosis/Pulmonary Embolism Present on Admission: No
[2016-07-23 09:32] LABS: Basophils # (Auto) 0 K/mcL (0.0-0.3); Basophils % (Auto) 0.1 % (0.0-2.0); Eosinophils # (Auto) 0 K/mcL (0.0-0.7); Eosinophils % (Auto) 0 % (0.0-7.0); Granulocytes % (Auto) 73.5 % (38.0-78.0); Lymphocytes # (Auto) 1.9 K/mcL (1.5-4.8); Lymphocytes % (Auto) 15.2 % (15.5-49.0); Mean Cell Volume 86.8 fL (80.0-100.0); Mean Corpuscular HGB Conc 33.7 g/dL (31.0-36.0); Mean Corpuscular Hemoglobin 29.3 pg (26.0-34.0); Monocytes # (Auto) 1.4 K/mcL (0.1-0.9); Monocytes % (Auto) 11.2 % (1.0-12.0); Platelet Count 319 K/mcL (140-440); RBC 5.31 M/mcL (4.00-5.20); Red Cell Distribution Width 14.3 % (11.5-14.5)
--- NOTE | 2016-07-23 10:17 | Cat Scan Report ---
History: Multiple sclerosis with generalized weakness and recent flareup Findings: The brain was imaged without contrast at 2.5 mm intervals. There are multiple low-attenuation periventricular white matter lesions. The largest lesions are located in the parietal lobes adjacent to the lateral ventricles. Less severe involvement is present in the frontal lobes. There is a subtle smaller lesion located along the posterior inferior border of the right putamen. It measures 3 x 5 mm. Lesion right putamen was not seen on a prior brain MRI done on 06/03/11. The lesions in the frontal and parietal lobes were present previously and have not changed. There is loss of brain parenchyma with mild to moderate frontal lobe and milder temporal and parietal lobe atrophy. The lateral ventricles are borderline dilated but proportionate to the atrophy. There is been mild progression of the atrophy and ventricular dilatation since 2012. There is no evidence of hemorrhage or mass effect. No abnormal extra-axial fluid collection is present. Bone windows show no skull fracture. Impression: Multiple burned out MS plaques in the frontal and parietal lobes. Small new lesion inferiorly in the right putamen. This could be a new MS plaque or possibly a small infarct. If indicated, this could be further evaluated by brain MRI Interpreted and Authenticated by: Will Charles 07/23/16
[2016-07-23 12:46] LABS: ALT/SGPT 22 U/l (0-40); Albumin 3.7 gm/dL (3.2-5.2); Albumin/Globulin Ratio 1.5 (1.0-2.3); Alkaline Phosphatase 79 U/L (39-117); Blood Urea Nitrogen 13 mg/dl (6-20)
[2016-07-23] MEDS: LORazepam 2 MG/ML VIAL IV PRN ×2 (18:12→23:56)
[2016-07-23] MEDS: DONEPEZIL 10 MG TABLET PO SCH (20:09)
[2016-07-23] MEDS: MIRTAZAPINE 15 MG TABLET PO SCH (20:11)
[2016-07-23] MEDS: NORTRIPTYLINE 25 MG CAPSULE PO SCH (20:13)
[2016-07-23] MEDS: ACETAMINOPHEN 325 MG TABLET PO PRN (23:56)
[2016-07-24] MEDS ORDERED: OLANZapine 5 MG TABLET PO ONE (01:56)
[2016-07-24] MEDS ORDERED: OLANZapine 2.5 MG TABLET PO ONE (02:04)
[2016-07-24] MEDS: NICOTINE 21 MG PATCH TOPICAL SCH ×2 (02:12→16:50)
[2016-07-24] MEDS ORDERED: NICOTINE 21 MG PATCH ONE (02:12)
[2016-07-24] MEDS: LORazepam 2 MG/ML VIAL IV PRN ×2 (03:44→17:38)
[2016-07-24] MEDS: 0.9 % SODIUM CHLORIDE 10 ML SYRINGE IV SCH ×3 (05:26→22:01)
[2016-07-24] MEDS: LEVOTHYROXINE 50 MCG TABLET PO SCH (07:47)
[2016-07-24] MEDS: POTASSIUM CHLORIDE 20 MEQ in 0.45 % SODIUM CHLORIDE 1,000 ML IV SCH ×2 (07:48→12:24)
[2016-07-24] MEDS: TAMSULOSIN 0.4 MG CAPSULE PO SCH (09:34)
[2016-07-24] MEDS: CALCIUM CARBONATE 500 MG TAB.CHEW CHEWED SCH ×2 (09:34→21:06)
[2016-07-24] MEDS: BACLOFEN 10 MG TABLET PO SCH ×3 (09:34→21:06)
[2016-07-24] MEDS: VITAMIN D3 1,000 UNIT TABLET PO SCH ×2 (09:34→21:14)
[2016-07-24] MEDS: ASPIRIN 81 MG TAB.CHEW PO SCH (09:34)
[2016-07-24] MEDS: DOCUSATE SODIUM 100 MG CAPSULE PO SCH ×2 (09:34→21:05)
[2016-07-24] MEDS: HEPARIN 5,000 UNIT/ML VIAL SQ SCH ×2 (09:34→21:05)
[2016-07-24] MEDS: levETIRAcetam 500 MG TABLET PO SCH ×2 (09:34→21:06)
[2016-07-24] MEDS: ESCITALOPRAM 20 MG TABLET PO SCH (09:34)
[2016-07-24] MEDS: methylPREDNISolone SOD SUCC 1,000 MG in 0.9 % SODIUM CHLORIDE 100 ML IV SCH (09:42)
--- NOTE | 2016-07-24 10:51 | Internal Med Progress Note ---
Medical - PN: Subj Patient information: Note initiated : 07/24/16 at 10:50 am Patient: Stephanie Bellamy 61 y/o F admitted on 07/22/16 for Increased Weakness/ Hypokalemia, MS. Interval history: July 21, 2016: History of present illness: Ms. Bellamy is a 61 year old female he was admitted around 4:00 this morning. We were having computer difficulties, and I was unable to access our EMR at that time. this patient was diagnosed with MS between 10 and 15 years ago. She is normally followed by Dr. Akins, of neurology. Her boyfriend of many years, whom she lives with, brought her to the emergency room last night, saying she had become increasingly weak over the last 3 days and he could no longer manage getting her in and out of bed. The patient presented as rather confused. It took her a long time to answer questions, and it is not clear that her questions are reliable. She agrees that her weakness has been worse for the last 3 or so days. She says she has had a headache for the last day or so, encompassing her whole head. She admits that she has been sitting outside lately, to smoke cigarettes and agrees that being out in the heat tends to make her feel worse.Otherwise, she could not recall fever or chills changes in vision or new ear symptoms, sore throat or cough, chest pain or palpitations, shortness of breath or wheezing, abdominal pain, nausea or vomiting, diarrhea or constipation. She has had bladder incontinence, but otherwise denies dysuria. eR evaluation showed low potassium, but no other obvious infection or specific cause for her symptoms. her significant other recently had spine surgery, and cannot manage carrying her full weight in caring for her at home. The patient was admitted for observation, to try to find the cause of her symptoms, and to treat accordingly. July 22: today, the patient reported she was feeling a bit better this morning but remains very weak. Her caregivers reported that prior to a few days ago, she was strong enough to stand and pivot and help with transfers. She was unable to get upor bear any weight at all and so her arrival here. Nursing staff to try to get her up to a chair, but the patient became extremely anxious and refused to move out of bed. his morning, she continues to have a mild frontal headache, but otherwise denies fever or chills chest pain or shortness of breath, abdominal pain, nausea or vomiting, diarrhea, dysuria. -Her significant other is here this afternoon, and he reports a similar timeline. He says she has been complaining of headaches for several weeks now. Someone had reported to me that the patient recently fell in the bathroom about 1 week ago, but he cannot recall any falls. He says she just has not been able to participate in transferring at all for the last few days. -he has been talking with our manager case today, and he agrees that she cannot be managed at home alone in her current state, and he would like to consider having her go to rehabilitation for strengthening prior to returning home. -after I saw her this morning, nursing staff reported that the patient was curling up into a ball,and seemed very anxious. It was thenrealized thatnone of her home medications were ordered in our computer system. Again,we were having a great many computer problems when she was admitted. I thought that I had entered in most of her medications, but apparently most of those did not show up in her MAR. those were reordered a little while ago, and she now has them on board. currently, she is very tremulous, and not very verbal. it appears she might be hallucinating. she is really not able to give a reliable history at this time. July 23: today, the patient says she is feeling quite a bit better, and more like herself. She continues to complain of a headache, but otherwise doesn't have any new complaints. he was able to lie still and follow directions for her head CT this morning. Her head CT is abnormal, and does show multiple oldMS plaques, but there is a new lesion noted as well. There is no sign of a subdural or obvious infection, and they did not comment on any sinusitis. -white blood cell count is a little more elevated today, for uncertain reasons. The patient is now afebrile. otherwise, she deniesnew eye or ear changes, sore throat or cough, chest pain or palpitations, shortness of breath, abdominal pain, nausea or vomiting or diarrhea. She says she did have a good bowel movement this morning,and is happy about that. She continues with bladder incontinence. July 24: the patient reports she is feeling better today but she still appears to be somewhat confused, and is still very weak. mRI of her brain was ordered last night, but could not be done until today, so that is still pending. she continues to be rather tachycardic, and intermittently he has increased respiratory rate without obvious shortness of breath or drop in O2 saturation. he did have some increased agitation during the night, and received 1 dose of oral Zyprexa. she denies subjective fever or chills She continues to have a mild headache. she denies changes in vision or hearing, sore throat or cough, shortness of breath or chest pain, abdominal pain, nausea or vomiting, diarrhea or constipation. She continues to have chronic urinary incontinence. She believes her arm strength is closer to normal, but remains rather tremulous , which she says is her baseline. Legs continue to be very weak. - Constitutional Vitals: Vital Signs Temp Pulse Resp BP Pulse Ox 97.6 F 113 H 22 118/75 95 07/24/16 07:12 07/24/16 03:33 07/24/16 07:12 07/24/16 07:12 07/24/16 07:12 Period Temp Pulse Resp BP Sys/Munson Pulse Ox Last 24 Hr 97.4 F-97.8 F 103-113 22-26 104-131/70-89 93-95 Intake and Output 07/23/16 07/24/16 07/24/16 21:59 05:59 13:59 Intake Total 120 / 120 1308 / 1308 1580 / 1580 Output Total 1900 / 1900 Balance 120 / 120 -592 / -592 1580 / 1580 Weight 164 lb 8 oz Intake & Output: Intake & Output 07/23/16 07/24/16 07/24/16 21:59 05:59 13:59 Intake Total 120 / 120 1308 / 1308 1580 / 1580 Output Total 1900 / 1900 Balance 120 / 120 -592 / -592 1580 / 1580 Weight 164 lb 8 oz Intake: IV 1008 / 1008 Potassium Chloride 20 Meq 1008 / 1008 In Sodium Chloride 0.45% 1,000 ml @ 100 mls/hr IV .Q10H6M [facility] Rx#: [id number] Oral 120 / 120 300 / 300 1580 / 1580 Output: Urine Catheter Amount 1900 / 1900 Other: Meal Lunch Breakfast Percent of Meal Consumed 50% 100% Feeding Ability Needs Supervision # Bowel Movements 2 1 on exam, she is awake and alert. She answers questions, but still seems a bit forgetful. Neck appears supple, without obvious JVD. cardiac exam shows regular rate and rhythm. Lungs are clear to auscultation. Abdomen is soft and nontender, with active bowel sounds. Extremities show no edema. Neurologic: The patient is alert, but still seems somewhat confused. She continues to have dysmetric movements of her arms, with reasonable strength. She continues to have very minimal movement of her legs. Medical - PN: Obj Da - Labs CBC & Chem 7: 07/23/16 08:25 07/23/16 11:25 Labs: Abnormal Lab Results 07/23/16 07/23/16 07/23/16 11:25 08:25 04:23 WBC 12.2 H RBC 5.31 H Hgb 15.5 H Lymph % (Auto) 15.2 L Gran # 8.9 H [place] # 1.4 H Carbon Dioxide 17 L 20 L Glucose 126 H 122 H Uric Acid 1.8 L AST 46 H 46 H Lactate Dehydrogenase 287 H July 24: heart rate is ranging from 103-113. Respiratory rate ranges from 22-26. O2 saturation is 95% on room air CBC is pending. July 23: head CT:this shows multiple burned out MS plaques in the frontal and parietal lobes. There is a small new lesion inferiorly in the right putamen which could be a new MS plaque versus an infarct. MRI recommended. July 22: Vitamin D level was markedly low at 10.91 07/21: troponin is less than 0.01 urinalysis shows pH of 5.0, specific gravity 1.019, 5 ketones, negative nitrites , negative leukocyte esterase EKG shows normal sinus rhythm at a rate of 81, with possible P pulmonale, low voltage chest x-ray shows clear lungs, and exam is considered normal. Meds: Medications Acetaminophen (Tylenol) 650 mg PO Q6HP PRN PRN Reason: PAIN/FEVER > 101 Last Admin: 07/23/16 23:56 Dose: 650 mg Aspirin (Aspirin) 81 mg PO DAILY [facility] Last Admin: 07/24/16 09:34 Dose: 81 mg Baclofen (Lioresal) 20 mg PO TID [facility] Last Admin: 07/24/16 09:34 Dose: 20 mg Bisacodyl (Dulcolax) 10 mg HI Q2-3DAYS PRN PRN Reason: Constipation Calcium Carbonate/Glycine (Tums) 500 mg CHEWED BID [facility] Last Admin: 07/24/16 09:34 Dose: 500 mg Docusate Sodium (Colace) 100 mg PO BID [facility] Last Admin: 07/24/16 09:34 Dose: 100 mg Donepezil HCl (Aricept) 5 mg PO HS [facility] Last Admin: 07/23/16 20:09 Dose: 5 mg Escitalopram Oxalate (Lexapro) 20 mg PO QDAY [facility] Last Admin: 07/24/16 09:34 Dose: 20 mg Heparin Sodium (Porcine) (Heparin) 5,000 unit SQ Q12 [facility] Last Admin: 07/24/16 09:34 Dose: 5,000 unit Potassium Chloride 20 meq/ (Sodium Chloride) 1,010 mls @ 100 mls/hr IV .Q10H6M [facility] Last Admin: 07/24/16 07:48 Dose: Not Given Levetiracetam (Keppra) 1,000 mg PO BID [facility] Last Admin: 07/24/16 09:34 Dose: 1,000 mg Levothyroxine Sodium (Synthroid) 50 mcg PO ACB [facility] Last Admin: 07/24/16 07:47 Dose: 50 mcg Lorazepam (Ativan) 0.5 mg IV Q4-6HP PRN PRN Reason: ANXIETY/SEDATION Last Admin: 07/24/16 03:44 Dose: 0.5 mg Magnesium Hydroxide (Milk Of Magnesia) 30 ml PO DAILYP PRN PRN Reason: Constipation Mirtazapine (Remeron) 45 mg PO [facility] Last Admin: 07/23/16 20:11 Dose: 45 mg Nicotine (Nicoderm) 21 mg TOPICAL DAILY@1000 [facility] Last Admin: 07/24/16 02:12 Dose: Not Given Nortriptyline HCl (Pamelor) 25 mg PO QHS [facility] Last Admin: 07/23/16 20:13 Dose: 25 mg Ondansetron HCl (Zofran) 4 mg IV Q6HP PRN PRN Reason: Nausea And Vomiting Sodium Chloride (Saline Flush) 10 ml IV Q8 [facility] Last Admin: 07/24/16 05:26 Dose: Not Given Tamsulosin HCl (Flomax) 0.8 mg PO DAILY [facility] Last Admin: 07/24/16 09:34 Dose: 0.8 mg Vitamin D (Vitamin D3) 1,000 unit PO BID [facility] Last Admin: 07/24/16 09:34 Dose: 1,000 unit Medical - PN: A/P - Time Spent With Patient Total time spent is greater than 50% in coordination of care (as documented) at patient's floor/unit and/or counseling patient: Greater than 35 minutes (1) Exacerbation of multiple sclerosis Status: Acute Current Visit: Yes (2) Hypokalemia Status: Resolved Current Visit: Yes (3) Weakness Status: Acute Current Visit: Yes (4) Neurogenic bladder Status: Chronic Current Visit: No (5) Tobacco abuse Status: Chronic Current Visit: No - Narrative A/P Narrative: #1. Weakness/neurologic. She has no obvious infection to explain her sudden decline. I suspect this is a multiple sclerosis flare. -I spoke with her neurologist, Dr. Lin. She suggested that we order an MRI with contrast of the brain, and cervical and thoracic spine, looking for signs of a flare. However, the patient would be unable to tolerate that test, which might last as long as 3 hours in her current state. -Dr. Lin agreed with IV steroids. -MRI of her brain is scheduled for this afternoon. The tach and I do not feel that the patient could lie still for 3 hours to be able to also do the cervical and thoracic spine. i will try to touch base with Dr. Akins once I have the MRI results. We need to decide about whether to continue the IV steroids as well. -dr. Lin also suggested that if the patient does not improve, we may want to get a spinal tap. -social work consult. -continue baclofen -vitamin D level came back very low . The patient will be started on both calcium and vitamin D supplements. -Shannon catheter was placed for her neurogenic bladder, with urine retention. -reported history of seizures. Continue Keppra. -she is a bit tremulous at this time, But this seems to be improved since resuming her usual medications. #2. Fluids and nutrition. Patient presents with hypokalemia, likely due to HCTZ and dehydration. HCTZ held. -Replace potassium IV, replacement IV fluids. potassium is improved . #3. CODE STATUS:The patient seems to indicate she wants to be a DNR, but did not have paperwork, and her history did not appear reliable. She suggest we contact her son Abram and who may have her medical power of estate planning attorney. #4. Tobacco abuse.- -The patient should be discouraged from smoking. She is offered a NicoDerm patch. #5. DVT prophylaxis: Subcutaneous heparin, support hose. #6.Hypocalcemia Check ionized calcium. -calcium is low. Started oral calcium replacement. #7. Psychiatric. -depression.Continue Lexapro. Continue mirtazapine at night. Continue nortriptyline at night - Reported memory loss. Continue donepezil. -past history of alcohol abuse. She denies excess drinking at this time. -she did have some increased agitation last night. Oral Zyprexa was ordered. staff feels that she is continuing to have hallucinations. NicoDerm patch dose was increased, as the patientwas demanding to go outside to smoke. #8. . neurogenic bladder. Continue tamsulosin, per Dr. Wang. #9. Endocrine. Hypothyroidism. Continue levothyroxine. #10. Hypertension. controlled. we are holding HCTZ.continue aspirin. #11. GI. patient was previously taking famotidine, for uncertain reasons. #12. Endocrine. Vitamin D deficiency, severe. Replace vitamin D, and calcium. #13. Respiratory. the patient continues to have episodes of tachycardia and tachypnea, of uncertain cause. I will check a d-dimer as she is certainly at risk for PE. However her O2 saturations are well maintained at this time. I will check an ABG also. EKG previously looked okay. the patient also has numerous cardiac risk factors, so I will check troponin and BNP as well. addendum: Because of the patient's persistent tachycardia and recurrent tachypnea,I did order some screening tests today. D-dimer was negative, however troponin and BNP were elevated. Follow-up EKG continues to show significant low voltage, but now appears to show very poor R-wave progression, suggestive of anterior infarct. There were no acute appearing ST-T wave changes, although T waves are mildly inverted in leads 1 and L[address] I [address] Dr. Pereyra of cardiology, at [facility]. Explained the patient's course and test results. He did not think that she was having an acute TX, although she may have had one recently. He felt that it was more likely that she now had heart failure, and that was contributing to abnormal tests and her symptoms. He suggested we repeat her troponin and 3 hours, and get a follow-up EKG. The patient was moved to telemetry and given IV Lasix. IV fluids were discontinued. she was also started on metoprolol, Plavix, Nitropaste, atorvastatin. Aspirin was also continued, as well as subcutaneous heparin. follow-up EKG at 4:40 PM shows continued poor R-wave progression, as well as flattened T waves in leads 1, L, V5, V6. One PVC was also noted. Low voltage is still noted. Compared to 240 this afternoon, there are some subtle T-wave changes. echocardiogram was also performed, but results are still pending at this time. the patient also underwent brain MRI, without contrast, earlier today. this showed old multiple sclerosis changes, but nothing that appeared new when compared to a recent MRI from [facility]. There was also no stroke seen. The patient could not keep still to do a follow-up MRI with contrast as she became agitated, and the staff could not seem to calm her down enough to keep her still. The radiologist did not feel that MRI with contrast would add much information. i did touch base with her significant other, Tanner, earlier today I also called her son/CHEPE, Jose, this evening. I explained to him the events of today. He confirms that his mother wishes to have a no CPR status. he would like to be kept updated on any changes in her condition. this visit has taken approximately 60 minutes today, to review patient's test results, interview and examine her, review plan of care with nursing and other staff, and write orders. Medical - PN: Qual - Stroke Symptom Onset Unknown: No - VTE Deep Vein Thrombosis/Pulmonary Embolism Present on Admission: No
[2016-07-24] MEDS ORDERED: ASPIRIN 325 MG ENTERIC COATED TABLET PO ONE (14:33)
[2016-07-24] MEDS ORDERED: NITROGLYCERIN 1 GM OINT.TOP TD ONE (14:33)
[2016-07-24] MEDS ORDERED: FUROSEMIDE 20 MG/2 ML VIAL IV ONE ×2 (16:33→17:12)
[2016-07-24] MEDS ORDERED: BISACODYL 10 MG SUPP.RECT PR PRN (17:12)
[2016-07-24] MEDS ORDERED: MAGNESIUM HYDROXIDE 30 ML ORAL.SUSP PO PRN (17:12)
[2016-07-24] MEDS ORDERED: ONDANSETRON 4 MG/2 ML VIAL IV PRN (17:12)
--- NOTE | 2016-07-24 17:29 | Magnetic Resonance Report ---
CLINICAL INFORMATION: Multiple sclerosis with worsening symptoms Technique: Sagittal and axial T1 FLAIR, axial T2 FLAIR, axial T2, axial diffusion and ADC map and axial gradient echo images were obtained. The patient became very agitated during the examination. She was given additional sedation by the nurse. This only made the symptoms worse. This study was then terminated. FINDINGS: Extensive periventricular white matter lesions are present in the frontal parietal and occipital lobes. The greatest involvement is near the atrial lateral ventricles. Associated with this is loss of brain parenchyma resulting in dilatation of the lateral ventricles. Lesions measure up to 2.7 cm within the parietal lobes. Milder involvement is present posteriorly and laterally in the left temporal lobe. Corpus callosum is atrophic. The basal ganglia pattern normal. On the head CT done on 07/23/16 there is a suggestion of a low-attenuation lesion posteriorly in the right putamen. This is not confirmed on the MRI and may have been artifact on the CT. The cerebellum and brainstem are normal. Diffusion sequence shows no active MS plaque or acute infarct. No hemorrhage or tumor are present. Comparison the prior brain MRI done at [facility] on 04/28/16 shows no change. IMPRESSION: Extensive periventricular white matter disease above the tentorium. This is most likely due to chronic burned out MS plaques. No new lesion has developed and there is been no progression of the disease since 04/28/16. Interpreted and Authenticated by: Will Charles 07/24/16
[2016-07-24] MEDS: CLOPIDOGREL 75 MG TABLET PO SCH (17:30)
[2016-07-24] MEDS: DONEPEZIL 10 MG TABLET PO SCH (21:05)
[2016-07-24] MEDS: ATORVASTATIN 20 MG TABLET PO SCH (21:06)
[2016-07-24] MEDS: METOPROLOL SUCCINATE 25 MG TAB.XL.24H PO SCH (21:13)
[2016-07-24] MEDS: MIRTAZAPINE 15 MG TABLET PO SCH (21:14)
[2016-07-24] MEDS: NORTRIPTYLINE 25 MG CAPSULE PO SCH (21:26)
[2016-07-25] MEDS: LORazepam 2 MG/ML VIAL IV PRN (00:47)
[2016-07-25] MEDS: 0.9 % SODIUM CHLORIDE 10 ML SYRINGE IV SCH ×3 (05:19→21:37)
[2016-07-25 05:53] LABS: Basophils # (Auto) 0 K/mcL (0.0-0.3); Basophils % (Auto) 0.2 % (0.0-2.0); Eosinophils # (Auto) 0.1 K/mcL (0.0-0.7); Eosinophils % (Auto) 0.6 % (0.0-7.0); Granulocytes % (Auto) 72.9 % (38.0-78.0); Lymphocytes # (Auto) 1.4 K/mcL (1.5-4.8); Lymphocytes % (Auto) 14.1 % (15.5-49.0); Mean Cell Volume 85.3 fL (80.0-100.0); Mean Corpuscular HGB Conc 35.4 g/dL (31.0-36.0); Mean Corpuscular Hemoglobin 30.2 pg (26.0-34.0); Monocytes # (Auto) 1.2 K/mcL (0.1-0.9); Monocytes % (Auto) 12.2 % (1.0-12.0); Platelet Count 242 K/mcL (140-440); RBC 4.88 M/mcL (4.00-5.20)
[2016-07-25 06:31] LABS: ALT/SGPT 24 U/l (0-40); Albumin 3.7 gm/dL (3.2-5.2); Albumin/Globulin Ratio 1.6 (1.0-2.3); Alkaline Phosphatase 70 U/L (39-117); Bilirubin,Direct < 0.2 mg/dL (0.0-0.3); Blood Urea Nitrogen 17 mg/dl (6-20); Gamma Glutamyl Transpeptidase 18 U/L (5-36); Magnesium 2.3 mg/dL (1.6-2.5); Uric Acid 2.1 mg/dL (2.5-8.0)
[2016-07-25] MEDS: TAMSULOSIN 0.4 MG CAPSULE PO SCH (08:40)
[2016-07-25] MEDS: VITAMIN D3 1,000 UNIT TABLET PO SCH ×2 (08:40→21:28)
[2016-07-25] MEDS: CALCIUM CARBONATE 500 MG TAB.CHEW CHEWED SCH ×2 (08:40→21:18)
[2016-07-25] MEDS: levETIRAcetam 500 MG TABLET PO SCH ×2 (08:41→21:25)
[2016-07-25] MEDS: BACLOFEN 10 MG TABLET PO SCH ×3 (08:41→22:39)
[2016-07-25] MEDS: DOCUSATE SODIUM 100 MG CAPSULE PO SCH ×2 (08:41→21:18)
[2016-07-25] MEDS: METOPROLOL SUCCINATE 25 MG TAB.XL.24H PO SCH ×2 (08:41→21:20)
[2016-07-25] MEDS: LEVOTHYROXINE 50 MCG TABLET PO SCH (08:42)
[2016-07-25] MEDS: ESCITALOPRAM 20 MG TABLET PO SCH (08:42)
[2016-07-25] MEDS: ASPIRIN 81 MG TAB.CHEW PO SCH (08:42)
[2016-07-25] MEDS: CLOPIDOGREL 75 MG TABLET PO SCH (08:42)
[2016-07-25] MEDS: HEPARIN 5,000 UNIT/ML VIAL SQ SCH ×2 (08:42→21:18)
[2016-07-25] MEDS ORDERED: NATALIZUMAB IV ONE (09:00)
[2016-07-25] MEDS ORDERED: SODIUM CHLORIDE 0.9% IV ONE (09:00)
--- NOTE | 2016-07-25 09:17 | Echocardiogram Report ---
ECHOCARDIOGRAM: 2-D and M-mode echocardiography with cardiac Doppler and color flow imaging were performed with a TosA-TEXa Aplio MX. Indication is acute heart failure/elevated troponin. Overall size of the four cardiac chambers and aortic root appeared normal as did LV wall thickness. The distal septum and the distal anterolateral wall appeared moderately hypokinetic. The other segments appeared to contract normally and overall LV systolic performance appeared [id number] depressed. Estimated ejection fraction is 40-45%. There was no evidence for mural thrombus. The aortic valve appeared trileaflet and normal. There was no evidence for aortic stenosis or aortic regurgitation by Doppler interrogation. The mitral and tricuspid valves appeared unremarkable. Doppler interrogation of LV inflow disclosed mildly prolonged early diastolic deceleration time and slight ''A'' wave dominance indicating delayed LV relaxation. There was no evidence for mitral regurgitation. Pulmonary venous interrogation disclosed normal ''S'' wave dominance. The pulmonic valve was not visualized. Pulmonary artery acceleration time appeared normal. There was no evidence for pulmonic stenosis or pulmonic regurgitation. There was no evidence for tricuspid regurgitation. No intracardiac shunting was appreciated. There was no evidence for pericardial effusion. The IVC was of normal diameter and showed mild respiratory variation. Sinus rhythm, rate 92, was present. CONCLUSION: Probable [id number] segmental LV systolic dysfunction/mild diastolic dysfunction. (See accompanying M-mode and Doppler reports for quantitation.) ECHOCARDIOGRAPHY M-MODE CALCULATIONS: HT: 64'' WT: 164 BSA: 1.80 m2 NORMALS AORTA: AORTIC ROOT 2.9 2.0-3.7 cm LEFT ATRIUM 3.6 1.9-4.0 cm MITRAL VALVE: EXCURSION 1.6 1.9-2.7 cm EPSS 0.6 <0.5 cm LT VENTRICLE: LVID (ED) 4.2 3.5-5.7 cm LVID (ES) 2.8 SEPTAL THICKNESS 1.1 0.6-1.1 cm SEPTAL EXCURSION 0.5 0.3-0.8 cm LVPW THICKNESS 1.0 0.6-1.1 cm LVPW EXCURSION 0.8 0.9-1.4 cm MINOR AXIS FS 33 25%-40% RT VENTRICLE: RVID (ED) -- 0.9-2.6 cm(up to 3cm if LLD) QUALITATIVE DOPPLER FLOW STUDIES MITRAL VALVE Delayed LV relaxation. AORTIC VALVE -- TRICUSPID VALVE -- PULMONIC VALVE -- QUANTITATIVE DOPPLER FLOW STUDIES SAMPLE SITES VELOCITIES PEAK PRESSURE VALVE AREA and/or VALVE WINDOW (PEAK,M/SEC) DROP (GRADIENT) PRESSURE HALF-TIME MV (Diastole) 1.0 (E) 1.1 (A) MV (Systole) -- AO (Diastole) -- AO (Systole) 1.2 TV (Systole) -- PV (Systole) 1.0 PV (Diastole) -- KIMBERLYG:teena Job ID: [id number] Doc ID: [id number] Domenico Dior MD
[2016-07-25] MEDS: NICOTINE 21 MG PATCH TOPICAL SCH (11:49)
--- NOTE | 2016-07-25 12:05 | Internal Med Progress Note ---
Medical - PN: Subj Patient information: Note initiated : 07/25/16 at 12:05 pm Patient: Stephanie Bellamy 61 y/o F admitted on 07/22/16 for Increased Weakness/ Hypokalemia, MS. Interval history: July 21, 2016: History of present illness: Ms. Bellamy is a 61 year old female he was admitted around 4:00 this morning. We were having computer difficulties, and I was unable to access our EMR at that time. this patient was diagnosed with MS between 10 and 15 years ago. She is normally followed by Dr. Akins, of neurology. Her boyfriend of many years, whom she lives with, brought her to the emergency room last night, saying she had become increasingly weak over the last 3 days and he could no longer manage getting her in and out of bed. The patient presented as rather confused. It took her a long time to answer questions, and it is not clear that her questions are reliable. She agrees that her weakness has been worse for the last 3 or so days. She says she has had a headache for the last day or so, encompassing her whole head. She admits that she has been sitting outside lately, to smoke cigarettes and agrees that being out in the heat tends to make her feel worse.Otherwise, she could not recall fever or chills changes in vision or new ear symptoms, sore throat or cough, chest pain or palpitations, shortness of breath or wheezing, abdominal pain, nausea or vomiting, diarrhea or constipation. She has had bladder incontinence, but otherwise denies dysuria. eR evaluation showed low potassium, but no other obvious infection or specific cause for her symptoms. her significant other recently had spine surgery, and cannot manage carrying her full weight in caring for her at home. The patient was admitted for observation, to try to find the cause of her symptoms, and to treat accordingly. July 22: today, the patient reported she was feeling a bit better this morning but remains very weak. Her caregivers reported that prior to a few days ago, she was strong enough to stand and pivot and help with transfers. She was unable to get upor bear any weight at all and so her arrival here. Nursing staff to try to get her up to a chair, but the patient became extremely anxious and refused to move out of bed. his morning, she continues to have a mild frontal headache, but otherwise denies fever or chills chest pain or shortness of breath, abdominal pain, nausea or vomiting, diarrhea, dysuria. -Her significant other is here this afternoon, and he reports a similar timeline. He says she has been complaining of headaches for several weeks now. Someone had reported to me that the patient recently fell in the bathroom about 1 week ago, but he cannot recall any falls. He says she just has not been able to participate in transferring at all for the last few days. -he has been talking with our case management rn today, and he agrees that she cannot be managed at home alone in her current state, and he would like to consider having her go to rehabilitation for strengthening prior to returning home. -after I saw her this morning, nursing staff reported that the patient was curling up into a ball,and seemed very anxious. It was thenrealized thatnone of her home medications were ordered in our computer system. Again,we were having a great many computer problems when she was admitted. I thought that I had entered in most of her medications, but apparently most of those did not show up in her MAR. those were reordered a little while ago, and she now has them on board. currently, she is very tremulous, and not very verbal. it appears she might be hallucinating. she is really not able to give a reliable history at this time. July 23: today, the patient says she is feeling quite a bit better, and more like herself. She continues to complain of a headache, but otherwise doesn't have any new complaints. he was able to lie still and follow directions for her head CT this morning. Her head CT is abnormal, and does show multiple oldMS plaques, but there is a new lesion noted as well. There is no sign of a subdural or obvious infection, and they did not comment on any sinusitis. -white blood cell count is a little more elevated today, for uncertain reasons. The patient is now afebrile. otherwise, she deniesnew eye or ear changes, sore throat or cough, chest pain or palpitations, shortness of breath, abdominal pain, nausea or vomiting or diarrhea. She says she did have a good bowel movement this morning,and is happy about that. She continues with bladder incontinence. July 24: the patient reports she is feeling better today but she still appears to be somewhat confused, and is still very weak. mRI of her brain was ordered last night, but could not be done until today, so that is still pending. she continues to be rather tachycardic, and intermittently he has increased respiratory rate without obvious shortness of breath or drop in O2 saturation. She did have some increased agitation during the night, and received 1 dose of oral Zyprexa. she denies subjective fever or chills She continues to have a mild headache. she denies changes in vision or hearing, sore throat or cough, shortness of breath or chest pain, abdominal pain, nausea or vomiting, diarrhea or constipation. She continues to have chronic urinary incontinence. She believes her arm strength is closer to normal, but remains rather tremulous , which she says is her baseline. Legs continue to be very weak. July 25: The patient had another very restless night,with agitation and calling out, demanding to go outside to smoke. she received some IV Ativan, and was able to get to sleep by early this morning. Later in the morning she is awake, and says she does feel like she is more clear headed. she is able to guesstimate that it is July 24, but could not recall the year. she could not recall the name of this hospital. She is tearful when talking about the fact that she cannot go straight home and has to go to rehabilitation first. She continues to have a mild headache, but admits that this is chronic. she otherwise denies fever or chills. She continues to intermittently complain that she feels dizzy or like she is falling, even when lying down. She denies chest pain or palpitations, shortness of breath, abdominal pain, nausea or vomiting, diarrhea or constipation. She does have a neurogenic bladder with incontinence. -mRI without contrast yesterday, did not show any new multiple sclerosis lesions when compared to a recent MRI. The radiologist did not feel he needed to do an MRI with contrast as he did not feel it would add much information. The patient became agitated during the MRI,and they therefore canceled the second part of the test. -further workup for the patient's intermittent tachypnea and tachycardia yesterday, did revealelevated BNP as well as troponin. follow-up EKGs were suggestive of anterior changes consistent with possible recent UT. Her case was reviewedwith Dr. Pereyra from [facility] cardiology He felt that she may have had an UT, but that she was not having one now and suggested that her abnormal tests now were more than likely due to CHF. he suggested we treat her congestive heart failure, and see how she does. - Constitutional Vitals: Vital Signs Temp Pulse Resp BP Pulse Ox 97.4 F 91 H 18 127/83 99 07/25/16 08:00 07/24/16 20:15 07/25/16 08:00 07/25/16 08:00 07/25/16 08:00 Period Temp Pulse Resp BP Sys/M[place]son Pulse Ox Last 24 Hr 97.2 F-98.7 F 78-91 18-22 100-128/63-98 94-99 Intake and Output 07/24/16 07/25/16 07/25/16 21:59 05:59 13:59 Intake Total 600 / 600 1410 / 1410 115 / 115 Output Total 2650 / 2650 1175 / 1175 Balance -2050 / -2050 235 / 235 115 / 115 Weight 164 lb 12.8 oz Intake & Output: Intake & Output 07/24/16 07/25/16 07/25/16 21:59 05:59 13:59 Intake Total 600 / 600 1410 / 1410 115 / 115 Output Total 2650 / 2650 1175 / 1175 Balance -2050 / -2050 235 / 235 115 / 115 Weight 164 lb 12.8 oz Intake: IV 1010 / 1010 115 / 115 Tysabri 300 mg In Sodium 115 / 115 Chloride 0.9% 100 ml @ 115 mls/hr IV ONCE ONE Rx #:[id number] Potassium Chloride 20 Meq 1010 / 1010 In Sodium Chloride 0.45% 1,000 ml @ 100 mls/hr IV .[id number] [facility] Rx#: [id number] Oral 600 / 600 400 / 400 Output: Urine Catheter Amount 2650 / 2650 1175 / 1175 Other: # Voids 2 On exam today, the patient is more alert and is calmer. I first entered the room today she was working with physical therapy, and was able to follow commands, to lift and move her legs slightly. Neck appears supple, without obvious JVD. cardiac exam shows regular rate and rhythm. Lungs are clear to auscultation. Abdomen is soft and nontender, with active bowel sounds. Extremities show no edema. Neurologic: The patient is alert, but still seems somewhat confused. She cannotquite recall the date, but definitely seems improved compared with yesterday. She continues to have dysmetric movements of her arms, with reasonable strength. she was able to do some minimal leg liftingon command today. Medical - PN: Obj Da - Labs CBC & Chem 7: 07/25/16 04:02 07/25/16 04:02 Labs: Abnormal Lab Results 07/25/16 07/25/16 07/24/16 04:02 04:02 16:53 WBC RBC Hgb Lymph % (Auto) 14.1 L [place] % (Auto) 12.2 H Gran # Lymph # 1.4 L [place] # 1.2 H Carbon Dioxide Glucose Uric Acid 2.1 L Phosphorus 1.8 L AST Lactate Dehydrogenase 307 H Troponin T 0.20 H* NT-Pro-B Natriuret Pep 07/24/16 07/24/16 07/23/16 13:20 13:20 11:25 WBC RBC Hgb Lymph % (Auto) [place] % (Auto) Gran # Lymph # [place] # Carbon Dioxide 17 L Glucose 126 H Uric Acid Phosphorus AST 46 H Lactate Dehydrogenase Troponin T 0.28 H* NT-Pro-B Natriuret Pep 5714.0 H 07/23/16 07/23/16 08:25 04:23 WBC 12.2 H RBC 5.31 H Hgb 15.5 H Lymph % (Auto) 15.2 L [place] % (Auto) Gran # 8.9 H Lymph # [place] # 1.4 H Carbon Dioxide 20 L Glucose 122 H Uric Acid 1.8 L Phosphorus AST 46 H Lactate Dehydrogenase 287 H Troponin T NT-Pro-B Natriuret Pep July 25: -heart rate is ranging from 93-123 since yesterday currently in the 90s. . -Echocardiogram from last night is read as showing normal-appearing cardiac chambers. There is moderate hypokinesis of the distal septum and distal anterolateral wall. ejection fraction is mildly suppressed at 40-45%. No thrombus is seen. Mild to moderate segmental left ventricular systolic dysfunction, as well as mild diastolic dysfunction. July 24: heart rate is ranging from 103-113. Respiratory rate ranges from 22-26. O2 saturation is 95% on room air Follow-up EKG continues to show significant low voltage, but now appears to show very poor R-wave progression, suggestive of anterior infarct. There were no acute appearing ST-T wave changes, although T waves are mildly inverted in leads 1 and L. follow-up EKG at 4:40 PM shows continued poor R-wave progression, as well as flattened T waves in leads 1, L, V5, V6. One PVC was also noted. Low voltage is still noted. Compared to 240 this afternoon, there are some subtle T-wave changes. CBC is pending. July 23: head CT:this shows multiple burned out MS plaques in the frontal and parietal lobes. There is a small new lesion inferiorly in the right putamen which could be a new MS plaque versus an infarct. MRI recommended. July 22: Vitamin D level was markedly low at 10.91 07/21: troponin is less than 0.01 urinalysis shows pH of 5.0, specific gravity 1.019, 5 ketones, negative nitrites , negative leukocyte esterase EKG shows normal sinus rhythm at a rate of 81, with possible P pulmonale, low voltage chest x-ray shows clear lungs, and exam is considered normal. Meds: Medications Acetaminophen (Tylenol) 650 mg PO Q6HP PRN PRN Reason: PAIN/FEVER > 101 Aspirin (Aspirin) 81 mg PO DAILY [facility] Last Admin: 07/25/16 08:42 Dose: 81 mg Atorvastatin Calcium (Lipitor) 20 mg PO HS [facility] Last Admin: 07/24/16 21:06 Dose: 20 mg Baclofen (Lioresal) 20 mg PO TID [facility] Last Admin: 07/25/16 08:41 Dose: 20 mg Bisacodyl (Dulcolax) 10 mg MS Q2-3DAYS PRN PRN Reason: Constipation Calcium Carbonate/Glycine (Tums) 500 mg CHEWED BID [facility] Last Admin: 07/25/16 08:40 Dose: 500 mg Clopidogrel Bisulfate (Plavix) 75 mg PO DAILY [facility] Last Admin: 07/25/16 08:42 Dose: 75 mg Docusate Sodium (Colace) 100 mg PO BID [facility] Last Admin: 07/25/16 08:41 Dose: 100 mg Donepezil HCl (Aricept) 5 mg PO HS [facility] Last Admin: 07/24/16 21:05 Dose: 5 mg Escitalopram Oxalate (Lexapro) 20 mg PO QDAY [facility] Last Admin: 07/25/16 08:42 Dose: 20 mg Heparin Sodium (Porcine) (Heparin) 5,000 unit SQ Q12 [facility] Last Admin: 07/25/16 08:42 Dose: 5,000 unit Levetiracetam (Keppra) 1,000 mg PO BID [facility] Last Admin: 07/25/16 08:41 Dose: 1,000 mg Levothyroxine Sodium (Synthroid) 50 mcg PO ACB [facility] Last Admin: 07/25/16 08:42 Dose: 50 mcg Lorazepam (Ativan) 0.5 mg IV Q4-6HP PRN PRN Reason: ANXIETY/SEDATION Last Admin: 07/25/16 00:47 Dose: 0.5 mg Magnesium Hydroxide (Milk Of Magnesia) 30 ml PO DAILYP PRN PRN Reason: Constipation Metoprolol Succinate (Toprol Xl) 6.25 mg PO BID [facility] Last Admin: 07/25/16 08:41 Dose: 6.25 mg Mirtazapine (Remeron) 45 mg PO HS [facility] Last Admin: 07/24/16 21:14 Dose: 45 mg Nicotine (Nicoderm) 21 mg TOPICAL DAILY@1000 [facility] Last Admin: 07/25/16 11:49 Dose: 21 mg Nortriptyline HCl (Pamelor) 25 mg PO QHS [facility] Last Admin: 07/24/16 21:26 Dose: 25 mg Ondansetron HCl (Zofran) 4 mg IV Q6HP PRN PRN Reason: Nausea And Vomiting Sodium Chloride (Saline Flush) 10 ml IV Q8 [facility] Last Admin: 07/25/16 05:19 Dose: 10 ml Tamsulosin HCl (Flomax) 0.8 mg PO DAILY [facility] Last Admin: 07/25/16 08:40 Dose: 0.8 mg Vitamin D (Vitamin D3) 1,000 unit PO BID [facility] Last Admin: 07/25/16 08:40 Dose: 1,000 unit Medical - PN: A/P - Time Spent With Patient Total time spent is greater than 50% in coordination of care (as documented) at patient's floor/unit and/or counseling patient: Greater than 35 minutes (1) Exacerbation of multiple sclerosis Status: Acute Current Visit: Yes (2) Hypokalemia Status: Resolved Current Visit: Yes (3) Weakness Status: Acute Current Visit: Yes (4) Neurogenic bladder Status: Chronic Current Visit: No (5) Tobacco abuse Status: Chronic Current Visit: No - Narrative A/P Narrative: #1. Weakness/neurologic. a) -Initial evaluation was most consistent with a multiple sclerosis flare. The patient was treated accordingly. Unfortunately, she did not seem to improve much after IV steroids. Her case was reviewed with her neurologist, Dr. Roca , who suggested follow-up MRI studies of the brain, cervical and thoracic spine. However, due to the patient's confusion and intermittent agitation, we were not able to obtain those studies immediately. -mRI of her brain only, without contrast, from yesterday, does not reveal any new obvious changes in either of an abscess, or stroke or other obvious findings. mental status has continued to wax and wane a bit, but does seem to be improving today. -she did receive her monthly dose of Tysabri this morning. -dr. Lin also suggested that if the patient does not improve, we may want to get a spinal tap. -continue baclofen. b) -vitamin D level came back very low . The patient as started on both calcium and vitamin D supplements. c) -Shannon catheter was placed for her neurogenic bladder, with urine retention. d) -reported history of seizures. Continue Keppra. -she is a bit tremulous at this time, But this seems to be improved since resuming her usual medications. #2. Fluids and nutrition. Patient presents with hypokalemia, likely due to HCTZ and dehydration. HCTZ held. -Replace potassium IV, replacement IV fluids. potassium is improved . #3. CODE STATUS:this was reviewed last night with her son, Jose, who confirms the patient would like to have a DNR CODE STATUS. #4. Tobacco abuse.- -The patient should be discouraged from smoking. I reviewed this again with her today, but she seems resistant to the idea. She does have a NicoDerm patch in place. #5. DVT prophylaxis: Subcutaneous heparin, support hose. #6.Hypocalcemia Check ionized calcium. -calcium is low. Started oral calcium replacement. #7. Psychiatric. -depression.Continue Lexapro. Continue mirtazapine at night. Continue nortriptyline at night - Reported memory loss. Continue donepezil. -past history of alcohol abuse. She denies excess drinking at this time. -she did have some increased agitation last night. She continues to have waxing and waning mental status. She is definitely clearer headed at this moment Her son confirmed with me last night, that she tends to go through these periods where she gets confused for a few days. Her MRI yesterday did not really shed any light on this. -Neurology had suggested that we consider a spinal tap, but now that the patient is on anticoagulation therapy, that would be riskier. #8. . neurogenic bladder. Continue tamsulosin, per Dr. Wang. #9. Endocrine. Hypothyroidism. Continue levothyroxine. #10. Hypertension. controlled. we are holding HCTZ.continue aspirin. #11. GI. patient was previously taking famotidine, for uncertain reasons. #12. Endocrine. Vitamin D deficiency, severe. Replace vitamin D, and calcium. #13. Respiratory. Because of the patient's persistent tachycardia and recurrent tachypnea,I did order some screening tests . D-dimer was negative, however troponin and BNP were elevated. Follow-up EKG continues to show significant low voltage, but now appears to show very poor R- wave progression, suggestive of anterior infarct. There were no acute appearing ST-T wave changes, although T waves are mildly inverted in leads 1 and L. I contacted Dr. Pereyra of cardiology, at [facility]. Explained the patient's course and test results. He did not think that she was having an acute UT, although she may have had one recently. He felt that it was more likely that she now had heart failure, and that was contributing to abnormal tests and her symptoms. He suggested we repeat her troponin and 3 hours, and get a follow-up EKG. The patient was moved to telemetry and given IV Lasix. IV fluids were discontinued. she was also started on metoprolol, Plavix, Nitropaste, atorvastatin. Aspirin was also continued, as well as subcutaneous heparin. follow-up EKG at 4:40 PM shows continued poor R-wave progression, as well as flattened T waves in leads 1, L, V5, V6. One PVC was also noted. Low voltage is still noted. Compared to 240 this afternoon, there are some subtle T-wave changes. -echocardiogram is consistent with recent anterior myocardial infarction. Continue metoprolol titration. Continue Plavix and aspirin, atorvastatin. -CHF- she does have mildly depressed ejection fraction. IV Lasix was given last night, but does not appear to have much of a response. i will try adding an KEILA inhibitor and spironolactone, to see if she can tolerate these. She continues to deny significant symptoms. this visit has taken approximately 40 minutes today, to review patient's test results, interview and examine her, review plan of care with nursing and other staff, and write orders. Medical - PN: Qual - Stroke Symptom Onset Unknown: No - VTE Deep Vein Thrombosis/Pulmonary Embolism Present on Admission: No
[2016-07-25] MEDS ORDERED: LISINOPRIL 2.5 MG TABLET PO ONE (14:30)
[2016-07-25] MEDS ORDERED: LISINOPRIL 5 MG TABLET PO ONE (14:45)
[2016-07-25] MEDS: SPIRONOLACTONE 25 MG TABLET PO SCH (16:05)
[2016-07-25] MEDS: MIRTAZAPINE 15 MG TABLET PO SCH (21:18)
[2016-07-25] MEDS: NORTRIPTYLINE 25 MG CAPSULE PO SCH (21:19)
[2016-07-25] MEDS: DONEPEZIL 10 MG TABLET PO SCH (21:24)
[2016-07-25] MEDS: ATORVASTATIN 20 MG TABLET PO SCH (21:25)
[2016-07-26 05:34] LABS: Basophils # (Auto) 0 K/mcL (0.0-0.3); Basophils % (Auto) 0.2 % (0.0-2.0); Eosinophils # (Auto) 0.2 K/mcL (0.0-0.7); Eosinophils % (Auto) 1.5 % (0.0-7.0); Granulocytes % (Auto) 34.8 % (38.0-78.0); Lymphocytes # (Auto) 6.3 K/mcL (1.5-4.8); Lymphocytes % (Auto) 54.2 % (15.5-49.0); Mean Cell Volume 88.2 fL (80.0-100.0); Mean Corpuscular HGB Conc 33.7 g/dL (31.0-36.0); Mean Corpuscular Hemoglobin 29.8 pg (26.0-34.0); Monocytes # (Auto) 1.1 K/mcL (0.1-0.9); Monocytes % (Auto) 9.3 % (1.0-12.0); Platelet Count 249 K/mcL (140-440); RBC 4.91 M/mcL (4.00-5.20); Red Cell Distribution Width 15.2 % (11.5-14.5)
[2016-07-26 05:41] LABS: ALT/SGPT 46 U/l (0-40); Albumin 3.1 gm/dL (3.2-5.2); Albumin/Globulin Ratio 1.5 (1.0-2.3); Alkaline Phosphatase 66 U/L (39-117); Bilirubin,Direct < 0.2 mg/dL (0.0-0.3); Blood Urea Nitrogen 21 mg/dl (6-20); Gamma Glutamyl Transpeptidase 25 U/L (5-36); Magnesium 2.3 mg/dL (1.6-2.5); Uric Acid 2.6 mg/dL (2.5-8.0)
[2016-07-26] MEDS: 0.9 % SODIUM CHLORIDE 10 ML SYRINGE IV SCH ×3 (05:49→21:09)
[2016-07-26] MEDS: LEVOTHYROXINE 50 MCG TABLET PO SCH (08:24)
[2016-07-26] MEDS: METOPROLOL SUCCINATE 25 MG TAB.XL.24H PO SCH ×2 (08:25→22:18)
[2016-07-26] MEDS: NICOTINE 21 MG PATCH TOPICAL SCH (09:15)
[2016-07-26] MEDS: HEPARIN 5,000 UNIT/ML VIAL SQ SCH ×2 (09:19→21:08)
[2016-07-26] MEDS: ACETAMINOPHEN 325 MG TABLET PO PRN ×2 (09:19→18:01)
[2016-07-26] MEDS: CALCIUM CARBONATE 500 MG TAB.CHEW CHEWED SCH ×2 (09:20→21:06)
[2016-07-26] MEDS: CLOPIDOGREL 75 MG TABLET PO SCH (09:20)
[2016-07-26] MEDS: TAMSULOSIN 0.4 MG CAPSULE PO SCH (09:20)
[2016-07-26] MEDS: ASPIRIN 81 MG TAB.CHEW PO SCH (09:21)
[2016-07-26] MEDS: DOCUSATE SODIUM 100 MG CAPSULE PO SCH ×2 (09:21→21:07)
--- NOTE | 2016-07-26 09:22 | Internal Med Progress Note ---
Medical - PN: Subj Patient information: Note initiated : 07/26/16 at 9:22 am Patient: Stephanie Bellamy 61 y/o F admitted on 07/22/16 for Increased Weakness/ Hypokalemia, MS. Interval history: July 21, 2016: History of present illness: Ms. Bellamy is a 61 year old female he was admitted around 4:00 this morning. We were having computer difficulties, and I was unable to access our EMR at that time. this patient was diagnosed with MS between 10 and 15 years ago. She is normally followed by Dr. Akins, of neurology. Her boyfriend of many years, whom she lives with, brought her to the emergency room last night, saying she had become increasingly weak over the last 3 days and he could no longer manage getting her in and out of bed. The patient presented as rather confused. It took her a long time to answer questions, and it is not clear that her questions are reliable. She agrees that her weakness has been worse for the last 3 or so days. She says she has had a headache for the last day or so, encompassing her whole head. She admits that she has been sitting outside lately, to smoke cigarettes and agrees that being out in the heat tends to make her feel worse.Otherwise, she could not recall fever or chills changes in vision or new ear symptoms, sore throat or cough, chest pain or palpitations, shortness of breath or wheezing, abdominal pain, nausea or vomiting, diarrhea or constipation. She has had bladder incontinence, but otherwise denies dysuria. eR evaluation showed low potassium, but no other obvious infection or specific cause for her symptoms. her significant other recently had spine surgery, and cannot manage carrying her full weight in caring for her at home. The patient was admitted for observation, to try to find the cause of her symptoms, and to treat accordingly. July 22: today, the patient reported she was feeling a bit better this morning but remains very weak. Her caregivers reported that prior to a few days ago, she was strong enough to stand and pivot and help with transfers. She was unable to get upor bear any weight at all and so her arrival here. Nursing staff to try to get her up to a chair, but the patient became extremely anxious and refused to move out of bed. his morning, she continues to have a mild frontal headache, but otherwise denies fever or chills chest pain or shortness of breath, abdominal pain, nausea or vomiting, diarrhea, dysuria. -Her significant other is here this afternoon, and he reports a similar timeline. He says she has been complaining of headaches for several weeks now. Someone had reported to me that the patient recently fell in the bathroom about 1 week ago, but he cannot recall any falls. He says she just has not been able to participate in transferring at all for the last few days. -he has been talking with our case preparer and liner today, and he agrees that she cannot be managed at home alone in her current state, and he would like to consider having her go to rehabilitation for strengthening prior to returning home. -after I saw her this morning, nursing staff reported that the patient was curling up into a ball,and seemed very anxious. It was thenrealized thatnone of her home medications were ordered in our computer system. Again,we were having a great many computer problems when she was admitted. I thought that I had entered in most of her medications, but apparently most of those did not show up in her MAR. those were reordered a little while ago, and she now has them on board. currently, she is very tremulous, and not very verbal. it appears she might be hallucinating. she is really not able to give a reliable history at this time. July 23: today, the patient says she is feeling quite a bit better, and more like herself. She continues to complain of a headache, but otherwise doesn't have any new complaints. he was able to lie still and follow directions for her head CT this morning. Her head CT is abnormal, and does show multiple oldMS plaques, but there is a new lesion noted as well. There is no sign of a subdural or obvious infection, and they did not comment on any sinusitis. -white blood cell count is a little more elevated today, for uncertain reasons. The patient is now afebrile. otherwise, she deniesnew eye or ear changes, sore throat or cough, chest pain or palpitations, shortness of breath, abdominal pain, nausea or vomiting or diarrhea. She says she did have a good bowel movement this morning,and is happy about that. She continues with bladder incontinence. July 24: the patient reports she is feeling better today but she still appears to be somewhat confused, and is still very weak. mRI of her brain was ordered last night, but could not be done until today, so that is still pending. she continues to be rather tachycardic, and intermittently he has increased respiratory rate without obvious shortness of breath or drop in O2 saturation. She did have some increased agitation during the night, and received 1 dose of oral Zyprexa. she denies subjective fever or chills She continues to have a mild headache. she denies changes in vision or hearing, sore throat or cough, shortness of breath or chest pain, abdominal pain, nausea or vomiting, diarrhea or constipation. She continues to have chronic urinary incontinence. She believes her arm strength is closer to normal, but remains rather tremulous , which she says is her baseline. Legs continue to be very weak. July 25: The patient had another very restless night,with agitation and calling out, demanding to go outside to smoke. she received some IV Ativan, and was able to get to sleep by early this morning. Later in the morning she is awake, and says she does feel like she is more clear headed. she is able to guesstimate that it is July 24, but could not recall the year. she could not recall the name of this hospital. She is tearful when talking about the fact that she cannot go straight home and has to go to rehabilitation first. She continues to have a mild headache, but admits that this is chronic. she otherwise denies fever or chills. She continues to intermittently complain that she feels dizzy or like she is falling, even when lying down. She denies chest pain or palpitations, shortness of breath, abdominal pain, nausea or vomiting, diarrhea or constipation. She does have a neurogenic bladder with incontinence. -mRI without contrast yesterday, did not show any new multiple sclerosis lesions when compared to a recent MRI. The radiologist did not feel he needed to do an MRI with contrast as he did not feel it would add much information. The patient became agitated during the MRI,and they therefore canceled the second part of the test. -further workup for the patient's intermittent tachypnea and tachycardia yesterday, did reveal elevated BNP as well as troponin. follow-up EKGs were suggestive of anterior changes consistent with possible recent NH. Her case was reviewed with Dr. Pereyra from [facility] He felt that she may have had an NH, but that she was not having one now and suggested that her abnormal tests now were more than likely due to CHF. he suggested we treat her congestive heart failure, and see how she does. July 26: the patient appears to have had a good night. it sounds like she mostly slept through the night, and did not require extra medication. this morning, she is awake and alert. She says she is definitely feeling better. She denies subjective fever or chills headaches. She is not reporting dizziness at this time. She denies chest pain or palpitations, shortness of breath, abdominal pain, nausea or vomiting, diarrhea or constipation. She does have a neurogenic bladder. She currently has a Shannon catheter in place, and desires to keep that for now, to decrease the stress of having to use either depends or bedpan. -systolic blood pressure ran quite low last evening, down into the 80safter receiving just 2.5 mg of lisinopril. Her evening metoprolol was held. This morning blood pressure has rebounded. heart rates are generally improved compared to yesterday, now ranging from 84-103. blood pressures this morning are ranging 102 to 115 / 60s to 80s. - Constitutional Vitals: Vital Signs Temp Pulse Resp BP Pulse Ox 98.0 F 84 19 115/80 98 07/26/16 08:00 07/26/16 04:00 07/26/16 08:00 07/26/16 08:00 07/26/16 08:00 Period Temp Pulse Resp BP Sys/Munson Pulse Ox Last 24 Hr 97.1 F-98.9 F 84-104 18-20 81-115/54-80 95-98 Intake and Output 07/25/16 07/26/16 07/26/16 21:59 05:59 13:59 Intake Total 240 / 240 Output Total 700 / 700 800 / 800 Balance -460 / -460 -800 / -800 Weight 170 lb 3.2 oz Intake & Output: Intake & Output 07/25/16 07/26/16 07/26/16 21:59 05:59 13:59 Intake Total 240 / 240 Output Total 700 / 700 800 / 800 Balance -460 / -460 -800 / -800 Weight 170 lb 3.2 oz Intake: Oral 240 / 240 Output: Urine Catheter Amount 700 / 700 800 / 800 Other: Meal Dinner Percent of Meal Consumed 75% # of times incontinent of 1 Bowels On exam today, the patient is more alert and is calmer. she still is quite sad about her situation,but definitely feels more like herself today. Neck appears supple, without obvious JVD. cardiac exam shows regular rate and rhythm. Lungs are clear to auscultation , though breath sounds are decreased at the bases likely due to hallow respirations.. Abdomen is soft and nontender, with active bowel sounds. Extremities show no edema. Neurologic: The patient is alert, Angie seems less confused than yesterday. Affect still seems depressed. Cranial nerves are grossly nonfocal, although she does have more of a lid lag on one side. Motor exam: Consulting Practice Director strength and upper extremity flexion and extension are about 4 out of 5, improving. Lower extremities continue quite weak, but she is able to lift her legs and move them a little to each side today, which I believe is an improvement over admission. cerebellar exam continues to show a mild tremor and dysmetria finger to finger exam. she reports this is her baseline. Medical - PN: Obj Da - Labs CBC & Chem 7: 07/26/16 04:00 07/26/16 04:00 Labs: Abnormal Lab Results 07/26/16 07/26/16 07/25/16 04:00 04:00 04:02 WBC 11.6 H RBC Hgb RDW 15.2 H Gran % 34.8 L Lymph % (Auto) 54.2 H Sebastian % (Auto) Gran # Lymph # 6.3 H Sebastian # 1.1 H Carbon Dioxide BUN 21 H Glucose Uric Acid 2.1 L Calcium 8.3 L Phosphorus 1.8 L AST ALT 46 H Lactate Dehydrogenase 275 H 307 H Troponin T NT-Pro-B Natriuret Pep Total Protein 5.2 L Albumin 3.1 L Globulin 2.1 L 07/25/16 07/24/16 07/24/16 04:02 16:53 13:20 WBC RBC Hgb RDW Gran % Lymph % (Auto) 14.1 L Sebastian % (Auto) 12.2 H Gran # Lymph # 1.4 L Sebastian # 1.2 H Carbon Dioxide BUN Glucose Uric Acid Calcium Phosphorus AST ALT Lactate Dehydrogenase Troponin T 0.20 H* NT-Pro-B Natriuret Pep 5714.0 H Total Protein Albumin Globulin 07/24/16 07/23/16 07/23/16 13:20 11:25 08:25 WBC 12.2 H RBC 5.31 H Hgb 15.5 H RDW Gran % Lymph % (Auto) 15.2 L Sebastian % (Auto) Gran # 8.9 H Lymph # Sebastian # 1.4 H Carbon Dioxide 17 L BUN Glucose 126 H Uric Acid Calcium Phosphorus AST 46 H ALT Lactate Dehydrogenase Troponin T 0.28 H* NT-Pro-B Natriuret Pep Total Protein Albumin Globulin July 25: -heart rate is ranging from 93-123 since yesterday currently in the 90s. . -Echocardiogram from last night is read as showing normal-appearing cardiac chambers. There is moderate hypokinesis of the distal septum and distal anterolateral wall. ejection fraction is mildly suppressed at 40-45%. No thrombus is seen. Mild to moderate segmental left ventricular systolic dysfunction, as well as mild diastolic dysfunction. July 24: heart rate is ranging from 103-113. Respiratory rate ranges from 22-26. O2 saturation is 95% on room air Follow-up EKG continues to show significant low voltage, but now appears to show very poor R-wave progression, suggestive of anterior infarct. There were no acute appearing ST-T wave changes, although T waves are mildly inverted in leads 1 and L. follow-up EKG at 4:40 PM shows continued poor R-wave progression, as well as flattened T waves in leads 1, L, V5, V6. One PVC was also noted. Low voltage is still noted. Compared to 240 this afternoon, there are some subtle T-wave changes. MRI of the brain, without contrast: extensive periventricular white matter disease above the tentorium, likely due to chronic burned out MS plaques No new lesions seen when compared to MRI from April 28, 2016. The low attenuation lesions seen on the CAT scan from July 23, is not confirmed on the MRI, and is therefore considered an artifact. Cerebellum and brainstem looked normal. No hemorrhage or tumors or infarcts are seen. July 23: head CT:this shows multiple burned out MS plaques in the frontal and parietal lobes. There is a small new lesion inferiorly in the right putamen which could be a new MS plaque versus an infarct. MRI recommended. July 22: Vitamin D level was markedly low at 10.91 07/21: troponin is less than 0.01 urinalysis shows pH of 5.0, specific gravity 1.019, 5 ketones, negative nitrites , negative leukocyte esterase EKG shows normal sinus rhythm at a rate of 81, with possible P pulmonale, low voltage chest x-ray shows clear lungs, and exam is considered normal. Meds: Medications Acetaminophen (Tylenol) 650 mg PO Q6HP PRN PRN Reason: PAIN/FEVER > 101 Last Admin: 07/26/16 09:19 Dose: 650 mg Aspirin (Aspirin) 81 mg PO DAILY [facility] Last Admin: 07/26/16 09:21 Dose: 81 mg Atorvastatin Calcium (Lipitor) 20 mg PO HS [facility] Last Admin: 07/25/16 21:25 Dose: 20 mg Baclofen (Lioresal) 20 mg PO TID [facility] Last Admin: 07/25/16 22:39 Dose: Not Given Bisacodyl (Dulcolax) 10 mg [place] Q2-3DAYS PRN PRN Reason: Constipation Calcium Carbonate/Glycine (Tums) 500 mg CHEWED BID [facility] Last Admin: 07/26/16 09:20 Dose: 500 mg Clopidogrel Bisulfate (Plavix) 75 mg PO DAILY [facility] Last Admin: 07/26/16 09:20 Dose: 75 mg Docusate Sodium (Colace) 100 mg PO BID [facility] Last Admin: 07/26/16 09:21 Dose: 100 mg Donepezil HCl (Aricept) 5 mg PO HS [facility] Last Admin: 07/25/16 21:24 Dose: 5 mg Escitalopram Oxalate (Lexapro) 20 mg PO QDAY [facility] Last Admin: 07/25/16 08:42 Dose: 20 mg Heparin Sodium (Porcine) (Heparin) 5,000 unit SQ Q12 [facility] Last Admin: 07/26/16 09:19 Dose: 5,000 unit Levetiracetam (Keppra) 1,000 mg PO BID [facility] Last Admin: 07/25/16 21:25 Dose: 1,000 mg Levothyroxine Sodium (Synthroid) 50 mcg PO ACB [facility] Last Admin: 07/26/16 08:24 Dose: 50 mcg Lisinopril (Zestril) 2.5 mg PO DAILY [facility] Lorazepam (Ativan) 0.5 mg IV Q4-6HP PRN PRN Reason: ANXIETY/SEDATION Last Admin: 07/25/16 00:47 Dose: 0.5 mg Magnesium Hydroxide (Milk Of Magnesia) 30 ml PO DAILYP PRN PRN Reason: Constipation Metoprolol Succinate (Toprol Xl) 12.5 mg PO BID [facility] Last Admin: 07/26/16 08:25 Dose: 12.5 mg Mirtazapine (Remeron) 45 mg PO HS [facility] Last Admin: 07/25/16 21:18 Dose: 45 mg Nicotine (Nicoderm) 21 mg TOPICAL DAILY@1000 [facility] Last Admin: 07/26/16 09:15 Dose: 21 mg Nortriptyline HCl (Pamelor) 25 mg PO QHS [facility] Last Admin: 07/25/16 21:19 Dose: 25 mg Ondansetron HCl (Zofran) 4 mg IV Q6HP PRN PRN Reason: Nausea And Vomiting Sodium Chloride (Saline Flush) 10 ml IV Q8 [facility] Last Admin: 07/26/16 05:49 Dose: 10 ml Spironolactone (Aldactone) 12.5 mg PO BIDD [facility] Last Admin: 07/25/16 16:05 Dose: 12.5 mg Tamsulosin HCl (Flomax) 0.8 mg PO DAILY [facility] Last Admin: 07/26/16 09:20 Dose: 0.8 mg Vitamin D (Vitamin D3) 1,000 unit PO BID [facility] Last Admin: 07/25/16 21:28 Dose: 1,000 unit Medical - PN: A/P - Time Spent With Patient Total time spent is greater than 50% in coordination of care (as documented) at patient's floor/unit and/or counseling patient: (1) Exacerbation of multiple sclerosis Status: Acute Current Visit: Yes (2) Hypokalemia Status: Resolved Current Visit: Yes (3) Weakness Status: Acute Current Visit: Yes (4) Neurogenic bladder Status: Chronic Current Visit: No (5) Tobacco abuse Status: Chronic Current Visit: No - Narrative A/P Narrative: #1. Weakness/neurologic. a) -Initial evaluation was most consistent with a multiple sclerosis flare. The patient was treated accordingly. Unfortunately, she did not seem to improve much after IV steroids. Her case was reviewed with her neurologist, Dr. Roca , who suggested follow-up MRI studies of the brain, cervical and thoracic spine. However, due to the patient's confusion and intermittent agitation, we were not able to obtain those studies immediately. -mRI of her brain only, without contrast, from yesterday, does not reveal any new obvious changes in either of an abscess, or stroke or other obvious findings. mental status has continued to wax and wane a bit, but does seem to be improving today. -she did receive her monthly dose of Tysabri yesterday. Mental status does appear to improved today, and is probably approaching her baseline. -dr. Lin also suggested that if the patient does not improve, we may want to get a spinal tap however this was not done, as she was started on Plavix and aspirin for her heart.. -continue baclofen. b) -vitamin D level came back very low . The patient as started on both calcium and vitamin D supplements. c) -Shannon catheter was placed for her neurogenic bladder, with urine retention. d) -reported history of seizures. Continue Keppra. -she is a bit tremulous at this time, But this seems to be improved since resuming her usual medications. #2. Fluids and nutrition. Patient presents with hypokalemia, likely due to HCTZ and dehydration. HCTZ held. -Replace potassium IV, replacement IV fluids. potassium is improved . #3. CODE STATUS:this was reviewed last night with her son, Jose, who confirms the patient would like to have a DNR CODE STATUS. #4. Tobacco abuse.- -The patient should be discouraged from smoking. I reviewed this again with her today, but she seems resistant to the idea. She does have a NicoDerm patch in place. #5. DVT prophylaxis: Subcutaneous heparin, support hose. #6.Hypocalcemia Check ionized calcium. -calcium is low. Started oral calcium replacement. #7. Psychiatric. -depression.Continue Lexapro. Continue mirtazapine at night. Continue nortriptyline at night - Reported memory loss. Continue donepezil. -past history of alcohol abuse. She denies excess drinking at this time. -she did have some increased agitation night before last. Mental status waxed and waned yesterday, but doesappear to be approaching normal today. . . Her son confirmed with me that she tends to go through these periods where she gets confused for a few days. Her MRI did not really shed any light on this. -Neurology had suggested that we consider a spinal tap, but now that the patient is on anticoagulation therapy, that would be riskier. #8. . neurogenic bladder. Continue tamsulosin, per Dr. Wang. #9. Endocrine. Hypothyroidism. Continue levothyroxine. #10. Hypertension. controlled. we are holding HCTZ.continue aspirin. #11. GI. patient was previously taking famotidine, for uncertain reasons. #12. Endocrine. Vitamin D deficiency, severe. Replace vitamin D, and calcium. #13. Cardiac. - status post acute anterior NH with depressed LVEF. (Because of the patient's persistent tachycardia and recurrent tachypnea,I did order some screening tests . D-dimer was negative, however troponin and BNP were elevated. Follow-up EKG continued to show significant low voltage, but now appears to show very poor R- wave progression, suggestive of anterior infarct. There were no acute appearing ST-T wave changes, although T waves are mildly inverted in leads 1 and L. I [address] Dr. Pereyra of cardiology, at [facility]. Explained the patient's course and test results. He did not think that she was having an acute NH, although she may have had one recently. He felt that it was more likely that she now had heart failure, and that was contributing to abnormal tests and her symptoms. He suggested we repeat her troponin and 3 hours, and get a follow-up EKG. The patient was moved to telemetry and given IV Lasix. IV fluids were discontinued. she was also started on metoprolol, Plavix, Nitropaste, atorvastatin. Aspirin was also continued, as well as subcutaneous heparin. follow-up EKG at 4:40 PM shows continued poor R-wave progression, as well as flattened T waves in leads 1, L, V5, V6. One PVC was also noted. Low voltage is still noted. Compared to 240 this afternoon, there are some subtle T-wave changes.) -echocardiogram is consistent with recent anterior myocardial infarction. Continue metoprolol titration. Continue Plavix and aspirin, atorvastatin. -CHF- she does have mildly depressed ejection fraction. IV Lasix was given night before last. Last evening, I also started low-dose lisinopril, spironolactone, and increased her beta alva. She became hypotensive last night, so evening dose of beta alva was held.. today, we will try spacing Toprol-XL, lisinopril, and spironolactone 2 hours apart, to assess each one's effect on her blood pressure. - She continues to deny obvious cardiac symptoms. #14. White blood cell count is a bit elevated today but she has no other obvious signs of infection. Continue to follow. this visit has taken approximately 30 minutes today, to review patient's test results, interview and examine her, review plan of care with nursing and other staff, and write orders. Medical - PN: Qual - Stroke Symptom Onset Unknown: No - VTE Deep Vein Thrombosis/Pulmonary Embolism Present on Admission: No
[2016-07-26] MEDS: ESCITALOPRAM 20 MG TABLET PO SCH (09:25)
[2016-07-26] MEDS: VITAMIN D3 1,000 UNIT TABLET PO SCH ×2 (09:25→21:06)
[2016-07-26] MEDS: BACLOFEN 10 MG TABLET PO SCH ×3 (09:26→21:08)
[2016-07-26] MEDS: levETIRAcetam 500 MG TABLET PO SCH ×2 (09:26→21:07)
[2016-07-26] MEDS: LISINOPRIL 5 MG TABLET PO SCH ×2 (10:55→12:39)
[2016-07-26] MEDS: SPIRONOLACTONE 25 MG TABLET PO SCH (12:40)
[2016-07-26] MEDS: NORTRIPTYLINE 25 MG CAPSULE PO SCH (21:06)
[2016-07-26] MEDS: DONEPEZIL 10 MG TABLET PO SCH (21:07)
[2016-07-26] MEDS: MIRTAZAPINE 15 MG TABLET PO SCH (21:07)
[2016-07-26] MEDS: ATORVASTATIN 20 MG TABLET PO SCH (21:07)
[2016-07-27] MEDS: 0.9 % SODIUM CHLORIDE 10 ML SYRINGE IV SCH ×3 (05:44→22:00)
[2016-07-27 06:35] LABS: Basophils # (Auto) 0 K/mcL (0.0-0.3); Basophils % (Auto) 0.4 % (0.0-2.0); Eosinophils # (Auto) 0.4 K/mcL (0.0-0.7); Granulocytes % (Auto) 36.1 % (38.0-78.0); Lymphocytes # (Auto) 6.2 K/mcL (1.5-4.8); Lymphocytes % (Auto) 52.8 % (15.5-49.0); Mean Cell Volume 86.8 fL (80.0-100.0); Mean Corpuscular HGB Conc 33.7 g/dL (31.0-36.0); Mean Corpuscular Hemoglobin 29.2 pg (26.0-34.0); Monocytes # (Auto) 0.9 K/mcL (0.1-0.9); Monocytes % (Auto) 7.7 % (1.0-12.0); Platelet Count 213 K/mcL (140-440); RBC 4.85 M/mcL (4.00-5.20); Red Cell Distribution Width 14.8 % (11.5-14.5)
[2016-07-27 06:53] LABS: ALT/SGPT 36 U/l (0-40); Albumin 2.7 gm/dL (3.2-5.2); Albumin/Globulin Ratio 1.3 (1.0-2.3); Alkaline Phosphatase 59 U/L (39-117); Bilirubin,Direct < 0.2 mg/dL (0.0-0.3); Blood Urea Nitrogen 23 mg/dl (6-20); Gamma Glutamyl Transpeptidase 24 U/L (5-36)
--- NOTE | 2016-07-27 08:32 | XRay Report ---
HISTORY: Reason for Exam:leucocytosis FINDINGS: There is a small alveolar infiltrate in the left lower lobe with a small pleural effusion. This is a new finding since 07/21/16. The lungs are otherwise clear and well expanded. The heart size, mediastinum and jerman are normal IMPRESSION: Mild left lower lobe pneumonia Interpreted and Authenticated by: Will Charles 07/27/16
[2016-07-27] MEDS ORDERED: VANCOMYCIN PER PHARMACY IV SCH (08:47)
[2016-07-27] MEDS ORDERED: METOPROLOL SUCCINATE 25 MG TAB.XL.24H PO SCH (09:00)
[2016-07-27] MEDS: PIPERACILLIN SODIUM/TAZOBACTAM 3.375 GM in DEXTROSE 5% IN WATER 50 ML IV SCH ×3 (09:40→23:51)
[2016-07-27] MEDS: HEPARIN 5,000 UNIT/ML VIAL SQ SCH ×2 (09:40→21:25)
[2016-07-27] MEDS: VANCOMYCIN 1,250 MG in 0.9 % SODIUM CHLORIDE 500 ML IV SCH ×2 (09:40→21:24)
[2016-07-27] MEDS: NICOTINE 21 MG PATCH TOPICAL SCH (09:40)
[2016-07-27] MEDS: TAMSULOSIN 0.4 MG CAPSULE PO SCH (09:41)
[2016-07-27] MEDS: CALCIUM CARBONATE 500 MG TAB.CHEW CHEWED SCH ×2 (09:41→21:25)
[2016-07-27] MEDS: CLOPIDOGREL 75 MG TABLET PO SCH (09:43)
[2016-07-27] MEDS: DOCUSATE SODIUM 100 MG CAPSULE PO SCH ×2 (09:43→21:26)
[2016-07-27] MEDS: ASPIRIN 81 MG TAB.CHEW PO SCH (09:43)
[2016-07-27] MEDS: ACETAMINOPHEN 325 MG TABLET PO PRN ×3 (09:43→21:27)
[2016-07-27] MEDS: levETIRAcetam 500 MG TABLET PO SCH ×2 (09:55→21:26)
[2016-07-27] MEDS: ESCITALOPRAM 20 MG TABLET PO SCH (09:55)
[2016-07-27] MEDS: LEVOTHYROXINE 50 MCG TABLET PO SCH (09:55)
[2016-07-27] MEDS: BACLOFEN 10 MG TABLET PO SCH ×3 (09:55→21:25)
[2016-07-27] MEDS: VITAMIN D3 1,000 UNIT TABLET PO SCH ×2 (09:55→21:25)
--- NOTE | 2016-07-27 10:00 | Internal Med Progress Note ---
Medical - PN: Subj Patient information: Note initiated : 07/27/16 at 9:58 am Service Date, if different from initiated Date: [] Patient: Stephanie Bellamy 61 y/o F admitted on 07/22/16 for Increased Weakness/ Hypokalemia, MS. Chief Complaint: [] Interval history: July 21, 2016: History of present illness: Ms. Bellamy is a 61 year old female he was admitted around 4:00 this morning. We were having computer difficulties, and I was unable to access our EMR at that time. this patient was diagnosed with MS between 10 and 15 years ago. She is normally followed by Dr. Akins, of neurology. Her boyfriend of many years, whom she lives with, brought her to the emergency room last night, saying she had become increasingly weak over the last 3 days and he could no longer manage getting her in and out of bed. The patient presented as rather confused. It took her a long time to answer questions, and it is not clear that her questions are reliable. She agrees that her weakness has been worse for the last 3 or so days. She says she has had a headache for the last day or so, encompassing her whole head. She admits that she has been sitting outside lately, to smoke cigarettes and agrees that being out in the heat tends to make her feel worse.Otherwise, she could not recall fever or chills changes in vision or new ear symptoms, sore throat or cough, chest pain or palpitations, shortness of breath or wheezing, abdominal pain, nausea or vomiting, diarrhea or constipation. She has had bladder incontinence, but otherwise denies dysuria. eR evaluation showed low potassium, but no other obvious infection or specific cause for her symptoms. her significant other recently had spine surgery, and cannot manage carrying her full weight in caring for her at home. The patient was admitted for observation, to try to find the cause of her symptoms, and to treat accordingly. July 22: today, the patient reported she was feeling a bit better this morning but remains very weak. Her caregivers reported that prior to a few days ago, she was strong enough to stand and pivot and help with transfers. She was unable to get upor bear any weight at all and so her arrival here. Nursing staff to try to get her up to a chair, but the patient became extremely anxious and refused to move out of bed. his morning, she continues to have a mild frontal headache, but otherwise denies fever or chills chest pain or shortness of breath, abdominal pain, nausea or vomiting, diarrhea, dysuria. -Her significant other is here this afternoon, and he reports a similar timeline. He says she has been complaining of headaches for several weeks now. Someone had reported to me that the patient recently fell in the bathroom about 1 week ago, but he cannot recall any falls. He says she just has not been able to participate in transferring at all for the last few days. -he has been talking with our disease case manager rn today, and he agrees that she cannot be managed at home alone in her current state, and he would like to consider having her go to rehabilitation for strengthening prior to returning home. -after I saw her this morning, nursing staff reported that the patient was curling up into a ball,and seemed very anxious. It was thenrealized thatnone of her home medications were ordered in our computer system. Again,we were having a great many computer problems when she was admitted. I thought that I had entered in most of her medications, but apparently most of those did not show up in her MAR. those were reordered a little while ago, and she now has them on board. currently, she is very tremulous, and not very verbal. it appears she might be hallucinating. she is really not able to give a reliable history at this time. July 23: today, the patient says she is feeling quite a bit better, and more like herself. She continues to complain of a headache, but otherwise doesn't have any new complaints. he was able to lie still and follow directions for her head CT this morning. Her head CT is abnormal, and does show multiple oldMS plaques, but there is a new lesion noted as well. There is no sign of a subdural or obvious infection, and they did not comment on any sinusitis. -white blood cell count is a little more elevated today, for uncertain reasons. The patient is now afebrile. otherwise, she deniesnew eye or ear changes, sore throat or cough, chest pain or palpitations, shortness of breath, abdominal pain, nausea or vomiting or diarrhea. She says she did have a good bowel movement this morning,and is happy about that. She continues with bladder incontinence. Annika 1: the patient reports she is feeling better today but she still appears to be somewhat confused, and is still very weak. mRI of her brain was ordered last night, but could not be done until today, so that is still pending. she continues to be rather tachycardic, and intermittently he has increased respiratory rate without obvious shortness of breath or drop in O2 saturation. She did have some increased agitation during the night, and received 1 dose of oral Zyprexa. she denies subjective fever or chills She continues to have a mild headache. she denies changes in vision or hearing, sore throat or cough, shortness of breath or chest pain, abdominal pain, nausea or vomiting, diarrhea or constipation. She continues to have chronic urinary incontinence. She believes her arm strength is closer to normal, but remains rather tremulous , which she says is her baseline. Legs continue to be very weak. July 25: The patient had another very restless night,with agitation and calling out, demanding to go outside to smoke. she received some IV Ativan, and was able to get to sleep by early this morning. Later in the morning she is awake, and says she does feel like she is more clear headed. she is able to guesstimate that it is July 24, but could not recall the year. she could not recall the name of this hospital. She is tearful when talking about the fact that she cannot go straight home and has to go to rehabilitation first. She continues to have a mild headache, but admits that this is chronic. she otherwise denies fever or chills. She continues to intermittently complain that she feels dizzy or like she is falling, even when lying down. She denies chest pain or palpitations, shortness of breath, abdominal pain, nausea or vomiting, diarrhea or constipation. She does have a neurogenic bladder with incontinence. -mRI without contrast yesterday, did not show any new multiple sclerosis lesions when compared to a recent MRI. The radiologist did not feel he needed to do an MRI with contrast as he did not feel it would add much information. The patient became agitated during the MRI,and they therefore canceled the second part of the test. -further workup for the patient's intermittent tachypnea and tachycardia yesterday, did reveal elevated BNP as well as troponin. follow-up EKGs were suggestive of anterior changes consistent with possible recent OK. Her case was reviewed with Dr. Pereyra from [facility] cardiology He felt that she may have had an OK, but that she was not having one now and suggested that her abnormal tests now were more than likely due to CHF. he suggested we treat her congestive heart failure, and see how she does. July 26: the patient appears to have had a good night. it sounds like she mostly slept through the night, and did not require extra medication. this morning, she is awake and alert. She says she is definitely feeling better. She denies subjective fever or chills headaches. She is not reporting dizziness at this time. She denies chest pain or palpitations, shortness of breath, abdominal pain, nausea or vomiting, diarrhea or constipation. She does have a neurogenic bladder. She currently has a Shannon catheter in place, and desires to keep that for now, to decrease the stress of having to use either depends or bedpan. -systolic blood pressure ran quite low last evening, down into the 80safter receiving just 2.5 mg of lisinopril. Her evening metoprolol was held. This morning blood pressure has rebounded. heart rates are generally improved compared to yesterday, now ranging from 84-103. blood pressures this morning are ranging 102 to 115 / 60s to 80s. July 27: Pt seen examined, no acute overnight events, low bp noted to medications for NSTEMI/ BB/ KEILA and aldactone. Presently given very low bp, will d/c keila and aldactone for now, cut the dose of metoprolol to 12.5mg once daily and monitor. Continue rest of home meds Pt overall denies any acute complaints, just feels more weak and tired WBC count up again today, CXR shwos left basilar pna, started on vanco and zosyn for hcap, blood culture, sputum cx and procalcitonin ordered. Pertinent ROS: present chr headache , No dizziness (MRI head neg) Denies chest pain, palpitations Denies cough or shortness of breath Denies abdominal pain, nausea or vomiting. - Constitutional Vitals: Vital Signs Temp Pulse Resp BP Pulse Ox 98.8 F 80 17 110/82 97 07/27/16 07:26 07/27/16 04:00 07/27/16 07:38 07/27/16 07:26 07/27/16 07:38 Period Temp Pulse Resp BP Sys/Munson Pulse Ox Last 24 Hr 97.0 F-98.8 F 80-98 16-19 83-110/52-82 93-98 Intake and Output 07/26/16 07/27/16 07/27/16 21:59 05:59 13:59 Intake Total 450 / 450 Output Total 650 / 650 650 / 650 Balance -200 / -200 -650 / -650 Weight 171 lb 4.8 oz Intake & Output: Intake & Output 07/26/16 07/27/16 07/27/16 21:59 05:59 13:59 Intake Total 450 / 450 Output Total 650 / 650 650 / 650 Balance -200 / -200 -650 / -650 Weight 171 lb 4.8 oz Intake: Oral 450 / 450 Output: Urine Catheter Amount 650 / 650 650 / 650 Other: Meal Dinner Percent of Meal Consumed 100% Exam: Constitutional; Afebrile, cooperative, alert, not in distress. Eyes- No icterus, , No periorbital swelling Ears- Ext ear normal, hearing normal to conversation. Neck- Midline trachea, supple Respiratory system: Air Entry equal on both sides, No crackles or wheezing, no rhonchi. CVS- Rate rhythm regular, S1,S2 heard, no gallop, no rub. Abdomen- Soft nontender abdomen, no organomegaly, no tenderness, no guarding or rigidity, EYE PHYSICIAN- AOOx3, moving all extremities, generalized weakness noted Medical - PN: Obj Da - Labs CBC & Chem 7: 07/27/16 04:15 07/27/16 04:15 Labs: Abnormal Lab Results 07/27/16 07/27/16 07/26/16 04:15 04:15 04:00 WBC 11.8 H RDW 14.8 H Gran % 36.1 L Lymph % (Auto) 52.8 H [place] % (Auto) Lymph # 6.2 H [place] # BUN 23 H 21 H Uric Acid Calcium 8.4 L 8.3 L Phosphorus ALT 46 H Lactate Dehydrogenase 275 H Troponin T NT-Pro-B Natriuret Pep Total Protein 4.8 L 5.2 L Albumin 2.7 L 3.1 L Globulin 2.1 L 2.1 L 07/26/16 07/25/16 07/25/16 04:00 04:02 04:02 WBC 11.6 H RDW 15.2 H Gran % 34.8 L Lymph % (Auto) 54.2 H 14.1 L [place] % (Auto) 12.2 H Lymph # 6.3 H 1.4 L [place] # 1.1 H 1.2 H BUN Uric Acid 2.1 L Calcium Phosphorus 1.8 L ALT Lactate Dehydrogenase 307 H Troponin T NT-Pro-B Natriuret Pep Total Protein Albumin Globulin 07/24/16 07/24/16 07/24/16 16:53 13:20 13:20 WBC RDW Gran % Lymph % (Auto) [place] % (Auto) Lymph # [place] # BUN Uric Acid Calcium Phosphorus ALT Lactate Dehydrogenase Troponin T 0.20 H* 0.28 H* NT-Pro-B Natriuret Pep 5714.0 H Total Protein Albumin Globulin Meds: Medications Acetaminophen (Tylenol) 650 mg PO Q6HP PRN PRN Reason: PAIN/FEVER > 101 Last Admin: 07/27/16 09:43 Dose: 650 mg Aspirin (Aspirin) 81 mg PO DAILY [facility] Last Admin: 07/27/16 09:43 Dose: 81 mg Atorvastatin Calcium (Lipitor) 20 mg PO HS [facility] Last Admin: 07/26/16 21:07 Dose: 20 mg Baclofen (Lioresal) 20 mg PO TID [facility] Last Admin: 07/27/16 09:55 Dose: 20 mg Bisacodyl (Dulcolax) 10 mg OR Q2-3DAYS PRN PRN Reason: Constipation Calcium Carbonate/Glycine (Tums) 500 mg CHEWED BID [facility] Last Admin: 07/27/16 09:41 Dose: 500 mg Clopidogrel Bisulfate (Plavix) 75 mg PO DAILY [facility] Last Admin: 07/27/16 09:43 Dose: 75 mg Docusate Sodium (Colace) 100 mg PO BID [facility] Last Admin: 07/27/16 09:43 Dose: 100 mg Donepezil HCl (Aricept) 5 mg PO HS [facility] Last Admin: 07/26/16 21:07 Dose: 5 mg Escitalopram Oxalate (Lexapro) 20 mg PO QDAY [facility] Last Admin: 07/27/16 09:55 Dose: 20 mg Heparin Sodium (Porcine) (Heparin) 5,000 unit SQ Q12 [facility] Last Admin: 07/27/16 09:40 Dose: 5,000 unit Piperacillin Sod/Tazobactam (Sod 3.375 gm/ Dextrose) 50 mls @ 100 mls/hr IV Q8H [facility] Last Admin: 07/27/16 09:40 Dose: 100 mls/hr Vancomycin HCl 1,250 mg/ (Sodium Chloride) 500 mls @ 333.3 mls/hr IV Q12H [facility] Last Admin: 07/27/16 09:40 Dose: 333.3 mls/hr Levetiracetam (Keppra) 1,000 mg PO BID [facility] Last Admin: 07/27/16 09:55 Dose: 1,000 mg Levothyroxine Sodium (Synthroid) 50 mcg PO ACB [facility] Last Admin: 07/27/16 09:55 Dose: 50 mcg Lorazepam (Ativan) 0.5 mg IV Q4-6HP PRN PRN Reason: ANXIETY/SEDATION Last Admin: 07/25/16 00:47 Dose: 0.5 mg Magnesium Hydroxide (Milk Of Magnesia) 30 ml PO DAILYP PRN PRN Reason: Constipation Metoprolol Succinate (Toprol Xl) 12.5 mg PO DAILY [facility] Last Admin: 07/27/16 09:44 Dose: 12.5 mg Mirtazapine (Remeron) 45 mg PO HS [facility] Last Admin: 07/26/16 21:07 Dose: 45 mg Nicotine (Nicoderm) 21 mg TOPICAL DAILY@1000 [facility] Last Admin: 07/27/16 09:40 Dose: 21 mg Nortriptyline HCl (Pamelor) 25 mg PO QHS [facility] Last Admin: 07/26/16 21:06 Dose: 25 mg Ondansetron HCl (Zofran) 4 mg IV Q6HP PRN PRN Reason: Nausea And Vomiting Sodium Chloride (Saline Flush) 10 ml IV Q8 [facility] Last Admin: 07/27/16 05:44 Dose: 10 ml Tamsulosin HCl (Flomax) 0.8 mg PO DAILY [facility] Last Admin: 07/27/16 09:41 Dose: 0.8 mg Vancomycin HCl (Vancomycin Per Pharmacy) 1 order IV UD [facility] Vitamin D (Vitamin D3) 1,000 unit PO BID [facility] Last Admin: 07/27/16 09:55 Dose: 1,000 unit Medical - PN: A/P - Time Spent With Patient Total time spent is greater than 50% in coordination of care (as documented) at patient's floor/unit and/or counseling patient: - Narrative A/P Narrative: a/p Generalized Weakness: Etiology uncertain, patient now has PNA on CXR , wonder if this was not picked up on initial CXR And patients symptoms are indeed related to PNA, Multiple sclerosis: Stable, no new lesions as per MRI, continue home medications for now, will need ongoing OT/ PT and likely SNF placement for rehab. LP not done in light of cardiac condition and dual anti platelet agents, pt mental status is much better now, HCAP PNA: Leucocytosis 11.8, CXR shows left basilar pna, possible effusion, started on vanco and zosyn, cultures ordered. monitor . VIt D Def on replacement, along with Jann NSTEMI: elevated trop, likely had NSTEMI at admission, etiology? has WMA on the echo, Import Export Manager at [facility] did feel pt was having acute OK, on dual anti platlet agents, beta blockers and statin. Will need outpatient snipper at discharge. H/o Seizures: SEizure precautions, on keppra continue same. depression: Continue home meds DVT hep sq DNR Medical - PN: Qual - Stroke Symptom Onset Unknown: No - VTE Deep Vein Thrombosis/Pulmonary Embolism Present on Admission: No
[2016-07-27] MEDS: DONEPEZIL 10 MG TABLET PO SCH (21:26)
[2016-07-27] MEDS: ATORVASTATIN 20 MG TABLET PO SCH (21:26)
[2016-07-27] MEDS: NORTRIPTYLINE 25 MG CAPSULE PO SCH (21:26)
[2016-07-27] MEDS: MIRTAZAPINE 15 MG TABLET PO SCH (21:26)
[2016-07-28] MEDS: PIPERACILLIN SODIUM/TAZOBACTAM 3.375 GM in DEXTROSE 5% IN WATER 50 ML IV SCH (06:00)
[2016-07-28] MEDS: 0.9 % SODIUM CHLORIDE 10 ML SYRINGE IV SCH (06:00)
[2016-07-28 06:11] LABS: Basophils # (Auto) 0 K/mcL (0.0-0.3); Basophils % (Auto) 0.3 % (0.0-2.0); Eosinophils # (Auto) 0.3 K/mcL (0.0-0.7); Eosinophils % (Auto) 2.9 % (0.0-7.0); Granulocytes % (Auto) 50.2 % (38.0-78.0); Lymphocytes # (Auto) 4.4 K/mcL (1.5-4.8); Lymphocytes % (Auto) 38.9 % (15.5-49.0); Mean Cell Volume 88.8 fL (80.0-100.0); Mean Corpuscular Hemoglobin 30.2 pg (26.0-34.0); Monocytes # (Auto) 0.9 K/mcL (0.1-0.9); Monocytes % (Auto) 7.7 % (1.0-12.0); Platelet Count 245 K/mcL (140-440); RBC 4.74 M/mcL (4.00-5.20); Red Cell Distribution Width 15.2 % (11.5-14.5)
[2016-07-28 06:58] LABS: ALT/SGPT 26 U/l (0-40); Albumin 2.8 gm/dL (3.2-5.2); Albumin/Globulin Ratio 1.3 (1.0-2.3); Alkaline Phosphatase 61 U/L (39-117); Bilirubin,Direct < 0.2 mg/dL (0.0-0.3); Blood Urea Nitrogen 18 mg/dl (6-20); Gamma Glutamyl Transpeptidase 24 U/L (5-36); Uric Acid 1.9 mg/dL (2.5-8.0)
[2016-07-28] MEDS: BACLOFEN 10 MG TABLET PO SCH (08:44)
[2016-07-28] MEDS: HEPARIN 5,000 UNIT/ML VIAL SQ SCH (08:44)
[2016-07-28] MEDS: TAMSULOSIN 0.4 MG CAPSULE PO SCH (08:44)
[2016-07-28] MEDS: NICOTINE 21 MG PATCH TOPICAL SCH (08:44)
[2016-07-28] MEDS: CALCIUM CARBONATE 500 MG TAB.CHEW CHEWED SCH (08:45)
[2016-07-28] MEDS: VITAMIN D3 1,000 UNIT TABLET PO SCH (08:45)
[2016-07-28] MEDS: ASPIRIN 81 MG TAB.CHEW PO SCH (08:45)
[2016-07-28] MEDS: LEVOTHYROXINE 50 MCG TABLET PO SCH (08:45)
[2016-07-28] MEDS: ACETAMINOPHEN 325 MG TABLET PO PRN (08:45)
[2016-07-28] MEDS: CLOPIDOGREL 75 MG TABLET PO SCH (08:45)
[2016-07-28] MEDS: levETIRAcetam 500 MG TABLET PO SCH (08:45)
[2016-07-28] MEDS: ESCITALOPRAM 20 MG TABLET PO SCH (08:45)
[2016-07-28] MEDS: DOCUSATE SODIUM 100 MG CAPSULE PO SCH (08:47)
[2016-07-28] MEDS ORDERED: METOPROLOL SUCCINATE 25 MG TAB.XL.24H PO SCH (09:00)
[2016-07-28] MEDS: VANCOMYCIN 1,250 MG in 0.9 % SODIUM CHLORIDE 500 ML IV SCH (10:19)
--- NOTE | 2016-07-28 12:15 | Discharge Summary ---
Medical - DS: Prov Patient information: Note initiated : 07/28/16 at 12:09 pm Service Date, if different from initiated Date: [] Patient: Stephanie Bellamy 61 y/o F admitted on 07/22/16 for Increased Weakness/ Hypokalemia, MS. Chief Complaint: [] Date of admission: 07/22/16 12:00 Discharge date: 07/28/16 Primary care physician: Celestino Orellana Admitting clinician: Mary Ngo Consults: 07/22/16 12:39 Consult to Physician [CONS] Routine Comment: Consulting Provider: [facility] Reason For Exam: Physician to Consult Discharging clinician: Ginger Wiley Medical - DS: Meds - Discharge Medications Prescriptions: Levofloxacin [Levaquin] 750 mg PO DAILY #6 tablet Metoprolol Succinate 25 mg PO DAILY #30 tab.er.24h Active and Home Medications: Home Medications baclofen 20 mg tablet 30 mg PO TID tab 08/28/14 [History Confirmed 07/22/16 Last Taken 07/20/16 20:00 20 mg.] acetaminophen 500 mg tablet 500 mg PO Q4H PRN tab 01/21/16 [History Confirmed 07/22/16 Last Taken 07/20/16 20:00 500 mg.] aspirin 81 mg tablet,delayed release 81 mg PO QDAY 01/21/16 [History Confirmed 07/22/16 Last Taken 07/20/16 08:00 81 mg.] docusate sodium 100 mg capsule 100 mg PO BID 01/21/16 [History Confirmed Last Taken 07/20/16 09:00 100 mg.] levetiracetam 500 mg tablet 1,000 mg PO BID 1 Days 01/21/16 [History Confirmed 07/22/16 Last Taken 07/20/16 09:00 1000 mg.] mirtazapine 15 mg disintegrating tablet 45 mg PO HS 30 Days 01/21/16 [History Confirmed 07/22/16 Last Taken 07/20/16 21:00 15 mg.] escitalopram 20 mg tablet 20 mg PO QDAY #90 tab 04/02/16 [Rx Confirmed 07/22/16 Last Taken 07/20/16 09:00 20 mg.] famotidine 20 mg tablet 20 mg PO BID 30 Days 04/24/16 [Rx Confirmed 07/22/16 Last Taken 07/20/16 20:00 20 mg.] nortriptyline 25 mg capsule 25 mg PO QHS #30 cap 04/24/16 [Rx Confirmed Last Taken 07/20/16 21:00 25 mg.] hydrochlorothiazide 25 mg tablet 25 mg PO QDAY #90 tab 05/06/16 [Rx Confirmed Last Taken 07/20/16 09:00 25 mg.] tamsulosin 0.4 mg capsule 0.8 mg PO Q24H #90 cap 05/12/16 [Rx Confirmed Last Taken 07/20/16 21:00 0.8 mg.] levothyroxine 50 mcg tablet 50 mcg PO QDAY 30 Days 06/06/16 [Rx Confirmed Last Taken 07/20/16 07:00 50 mcg.] Donepezil [Aricept] 5 mg PO HS 07/21/16 [History Confirmed 07/22/16 Last Taken 07/20/16 21:00 5 mg.] Natalizumab [Tysabri] 300 mg IV MONTHLY 07/22/16 [History Confirmed 07/22/16 Last Taken 06/30/16] Medical - DS: Hosp Hospital course: Mr. Bellamy is a 61 year female with h/o MS was admitted to the hospital with increasing weakness and confusion and headache. The patient workup was negative for any obvious infectious cause on admission, C T Head was negative, for acute intracranial process, MRI head was done which showed only old lesions. Patient conditions gradually improved and at the time of discharge patient is back to baseline. she is on multiple drugs for her MS and depression which are continued at discharge exept for .lexapro which is supposed to be held for 6 days while she is on levofloxacin. NSTEMI: Patient had bump in troponin which was noted after she was admitted to the hospital, its possible that mental status changes were related to cardiac event. Trop reached as high as 0.5, pt was not anticoagulated as per cardiology , patient was not accepted as transfer as it was thought this was due to CHF? Patient was treated medically with antiplatlet agents and beta blockers, Echo shows moderate decline in lvef and some regional wall motion abnormalities. Patient will be referred to cardiology as outpatient for further management. She will remain on anti platlet agents, statins and beta blockers at discharge. She can be started on KEILA/ aldactone at the direction of the machine taper if her BP allows. Pneumonia: Patient during hospital stay had her WBC count trend up, no cough or fever, CXR was suggestive of left basilar pna, she was started on vanco and zosyn with good response. On discharge she will be transitioned to levofloxacin for 6 more days. PTs microbiology was negative uptill the time of discharge. The patient did have a bout of delirium while she was in the hospital but that was resolved and patient was back to baseline mental status at the time of discharge. Discharge diagnosis: NSTEMI, Pneumonia, Multiple Sclerosis - Time Spent with Patient Total time spent providing and/or coordinating discharge services: Greater than 30 minutes Medical - DS: Exam - Constitutional Vitals: Vital Signs Temp Pulse Resp BP Pulse Ox 07/28/16 08:00 97.2 F 17 117/71 98 07/28/16 04:00 97.6 F 88 18 124/79 97 07/28/16 00:00 97.6 F 99 H 14 99/68 95 07/27/16 20:00 98.6 F 100 H 16 103/60 94 07/27/16 18:37 108 H 95 07/27/16 16:00 98.4 F 18 104/59 98 Intake and Output 07/27/16 07/28/16 07/28/16 21:59 05:59 13:59 Intake Total 670 / 670 910 / 910 50 / 50 Output Total 1650 / 1650 1325 / 1325 1350 / 1350 Balance -980 / -980 -415 / -415 -1300 / -1300 Intake: IV 50 / 50 550 / 550 50 / 50 Zosyn 3.375 gm In 50 / 50 50 / 50 50 / 50 Dextrose 5% in Water 50 ml @ 100 mls/hr IV Q8H ANN Rx#:[id number] Vancomycin 1,250 mg In 500 / 500 Sodium Chloride 0.9% 500 ml @ 333.3 mls/hr IV Q12H [facility] Rx#:[id number] Oral 620 / 620 360 / 360 Output: Urine Catheter Amount 1650 / 1650 1325 / 1325 1350 / 1350 Other: Meal Dinner Percent of Meal Consumed 75% Feeding Ability Assist with Tray Set Up # Bowel Movements 1 1 # of times incontinent of 1 Bowels Weight 170 lb 6.4 oz Additional comments: Constitutional; Afebrile, cooperative, alert, not in distress. Eyes- No icterus, , No periorbital swelling Ears- Ext ear normal, hearing normal to conversation. Neck- Midline trachea, supple Respiratory system: Air Entry equal on both sides, No crackles or wheezing, no rhonchi. CVS- Rate rhythm regular, S1,S2 heard, no gallop, no rub. Abdomen- Soft nontender abdomen, no organomegaly, no tenderness, no guarding or rigidity, WIND TURBINE MACHINIST- AOOx3, CN intact, wc bound. Medical - DS: Data Labs on day of discharge: Labs from last 24 hours 07/28/16 07/28/16 07/28/16 08:14 04:20 04:20 WBC 11.4 H RBC 4.74 Hgb 14.3 Hct 42.0 MCV 88.8 MCH 30.2 MCHC 34.0 RDW 15.2 H Plt Count 245 MPV 8.9 Gran % 50.2 Lymph % (Auto) 38.9 [place] % (Auto) 7.7 Eos % (Auto) 2.9 Baso % (Auto) 0.3 Gran # 5.7 Lymph # 4.4 [place] # 0.9 Eos # 0.3 Baso # 0 Sodium 139 Potassium 4.3 Chloride 105 Carbon Dioxide 24 Anion Gap 10.0 BUN 18 Creatinine 0.6 GFR Calculation 99 Glucose 95 Uric Acid 1.9 L Calcium 8.1 L Phosphorus 3.8 Magnesium 2.0 Total Bilirubin 0.2 Direct Bilirubin < 0.2 GGT 24 AST 14 ALT 26 Alkaline Phosphatase 61 Lactate Dehydrogenase 253 H Total Protein 4.9 L Albumin 2.8 L Globulin 2.1 L Albumin/Globulin Ratio 1.3 Triglycerides 112 Vancomycin Trough 16.9 H Preliminary micro results at discharge 07/27/16 09:15 Blood Culture - Preliminary Blood 07/27/16 09:00 Blood Culture - Preliminary Blood Medical - DS: A/P - Patient/Caregiver Discharge Instructions Activity: as per physical therapy, increase activity as tolerated Diet: Cardiac Additional Instructions: Hold Lexapro for 6 days, while the patient is on levofloxacin, Can resume after she completes the course. Follow up with PCP in 1-2 weeks Follow up with Cardiology, Dr Dior in 1 week. Take your medications as prescribed Go to the ER if worsening symptoms or any new concerning symptom, Chest pain, shortness of breath or fever. - Follow up Plan Follow up with: Celestino Orellana PA-C [Primary Care Provider] - Disposition: Xfer SNF Prognosis: Fair Rehab Potential: Fair I certify that the patient requires SNF services: Yes Overall status at discharge: patient is progressing back to baseline Medical - DS: Qual - VTE Deep Vein Thrombosis/Pulmonary Embolism Present on Admission: No
--- NOTE | 2016-08-14 10:33 | Emergency Department Note ---
General Adult HPI - General Chief complaint: Weakness Stated complaint: Increased Weakness Time Seen by Provider: 07/20/16 23:59 Source: patient, EMS Mode of arrival: EMS - History of Present Illness HPI Narrative: According the patient's this patient has been confused and very weak for the last 7 days. She has not even been able to get out of bed without help and the is having more and more difficulty helping her. She really does not describe specific complaints or symptoms other than generalized weakness which she thinks is due to her multiple sclerosis. Onset (ago): day(s) - Related Data Home Medications Medication Instructions Recorded Confirmed baclofen 20 mg tablet 30 mg PO TID tab 08/28/14 07/22/16 acetaminophen 500 mg tablet 500 mg PO Q4H PRN tab 01/21/16 07/22/16 aspirin 81 mg tablet,delayed 81 mg PO QDAY 01/21/16 07/22/16 release docusate sodium 100 mg capsule 100 mg PO BID 01/21/16 07/22/16 levetiracetam 500 mg tablet 1,000 mg PO BID 1 Days 01/21/16 07/22/16 mirtazapine 15 mg disintegrating 45 mg PO HS 30 Days 01/21/16 07/22/16 tablet Donepezil [Aricept] 5 mg PO HS 07/21/16 07/22/16 Natalizumab [Tysabri] 300 mg IV MONTHLY 07/22/16 07/22/16 Previous Rx's Medication Instructions Recorded escitalopram 20 mg tablet 20 mg PO QDAY #90 tab 04/02/16 famotidine 20 mg tablet 20 mg PO BID 30 Days 04/24/16 nortriptyline 25 mg capsule 25 mg PO QHS #30 cap 04/24/16 hydrochlorothiazide 25 mg tablet 25 mg PO QDAY #90 tab 05/06/16 tamsulosin 0.4 mg capsule 0.8 mg PO Q24H #90 cap 05/12/16 levothyroxine 50 mcg tablet 50 mcg PO QDAY 30 Days 06/06/16 Levofloxacin [Levaquin] 750 mg PO DAILY #6 tablet 07/28/16 Metoprolol Succinate 25 mg PO DAILY #30 tab.er.24h 07/28/16 Allergies Allergy/AdvReac Type Severity Reaction Status Date / Time No Known Drug Intolerances Allergy Unknown None Stated Verified 05/12/16 10:54 Review of Systems Constitutional: Denies: fever, chills Eyes: Denies: eye pain ENT ED: Denies: ear pain, throat pain Cardiovascular: Denies: chest pain Respiratory: Denies: cough, dyspnea Gastrointestinal: Denies: abdominal pain, nausea, vomiting, diarrhea Genitourinary: Denies: urgency, dysuria, frequency Musculoskeletal: Denies: back pain Integumentary: Denies: rash Neurological: Denies: headache Past Medical History - Past Medical History [facility] Narrative: Medical History (Last Updated 07/24/16 @ 12:53 by Mary Ngo MD ) Hypothyroid (Chronic) Neurogenic bladder (Chronic 08/16/14) Multiple sclerosis (Chronic 03/06/05) Menopausal and postmenopausal disorder (Chronic) Cervical dysplasia, moderate (Acute) Bronchitis (Acute) Depressive disorder (Acute) Anxiety disorder (Acute) Altered sensorium (Acute) Tobacco abuse (Chronic) Alcohol abuse, in remission (Acute) Nasopharyngitis, chronic (Resolved) Pneumonia (Resolved) Synovial cyst of popliteal space (Resolved) Past Surgical History (Last Updated 07/10/16 @ 14:08 by [employer]) History of augmentation of both breasts (Resolved) Family History Unknown No family history of breast cancer No family history of cardiovascular disease Medical history: Reports: other (Multiple sclerosis) Surgical history ED: Reports: cataract, tonsillectomy Physical Exam - General Limitations: no limitations General appearance: alert, in no apparent distress - Head Head exam: normocephalic - ENT ENT exam: normal exam - Neck Neck exam: Present: normal inspection - Chest Chest inspection: Present: normal inspection - Respiratory Respiratory exam: Present: normal lung sounds bilaterally - Cardiovascular Cardiovascular exam: Present: regular rate, normal rhythm, normal heart sounds - Abdominal Exam Abdominal exam: Present: soft - Neurological Exam Neurological exam: Present: alert - Expanded Neurological Exam Motor strength - LUE: 4/5 Motor strength - RUE: 4/5 Motor strength - LLE: 4/5 Motor strength - RLE: 4/5 - Psychiatric Psychiatric exam: Present: normal affect, normal mood - Skin Skin exam: Present: warm, dry, intact Course Vital Signs Temperature 98.3 F 07/20/16 23:41 Pulse Rate 93 H 07/20/16 23:41 Respiratory Rate 18 07/20/16 23:41 Blood Pressure 113/67 05/28/17 23:41 Pulse Oximetry (%) 93 07/20/16 23:41 Temperature 98.1 F 07/28/16 13:13 Pulse Rate 91 H 07/28/16 13:13 Respiratory Rate 16 07/28/16 13:13 Blood Pressure 114/78 07/28/16 13:13 Pulse Oximetry (%) 95 07/28/16 13:13 Medical Decision Making - MDM Narrative Medical decision making narrative: I discussed this case with the hospitalist and he is willing to admit her to the hospital due to her generalized weakness. - Lab Data Lab results reviewed: Yes I reviewed the patient's lab results. Result diagrams: 07/28/16 04:20 07/28/16 04:20 Lab Results 07/20/16 07/21/16 07/21/16 Range/Units 00:10 00:10 00:10 WBC 9.9 (4.5-11.0) K/mcL RBC 4.90 (4.00-5.20) M/mcL Hgb 14.3 (12.0-15.0) g/dL Hct 42.4 (36.0-48.0) % MCV 86.5 (80.0-100.0) fL MCH 29.2 (26.0-34.0) pg MCHC 33.8 (31.0-36.0) g/dL RDW 14.6 H (11.5-14.5) % Plt Count 290 (140-440) K/mcL MPV 8.5 (7.4-10.4) fL Gran % 63.3 (38.0-78.0) % Lymph % (Auto) 26.7 (15.5-49.0) % [place] % (Auto) 8.4 (1.0-12.0) % Eos % (Auto) 1.0 (0.0-7.0) % Baso % (Auto) 0.6 (0.0-2.0) % Gran # 6.2 (1.8-8.0) K/mcL Lymph # 2.6 (1.5-4.8) K/mcL [place] # 0.8 (0.1-0.9) K/mcL Eos # 0.1 (0.0-0.7) K/mcL Baso # 0.1 (0.0-0.3) K/mcL Sodium 141 (133-145) mmol/L Potassium 3.0 L (3.3-5.1) mmol/L Chloride 103 (96-108) mmol/L Carbon Dioxide 24 (22-30) mmol/L Anion Gap 14.0 (8-16) BUN 18 (6-20) mg/dl Creatinine 1.0 (0.6-1.1) mg/dl GFR Calculation 61 Glucose 118 H (70-105) mg/dL Uric Acid (2.5-8.0) mg/dL Calcium 8.6 (8.6-10.4) mg/dl Ionized Calcium [place] (1.16-1.32) mmol/L Phosphorus (2.7-4.5) mg/dL Magnesium (1.6-2.5) mg/dL Total Bilirubin < 0.2 (0.0-1.0) mg/dL Direct Bilirubin (0.0-0.3) mg/dL GGT (5-36) U/L AST 16 (0-37) U/l ALT 19 (0-40) U/l Alkaline Phosphatase 84 (39-117) U/L Lactate Dehydrogenase (94-250) U/L Troponin T < 0.01 (0-0.03) ng/ml Total Protein 6.1 (5.9-8.4) gm/dL Albumin 3.8 (3.2-5.2) gm/dL Globulin 2.3 (2.2-3.7) gm/dL Albumin/Globulin Ratio 1.7 (1.0-2.3) Triglycerides (<150) mg/dl 25-OH Vitamin D Total (>=30) ng/mL Urine Color Urine Appearance Urine pH (5.0-9.0) Ur Specific [place] (1.000-1.035) Urine Protein (NEG) mg/dL Urine Glucose (UA) (NEG) mg/dL Urine Ketones (NEG) mg/dL Urine Occult Blood (<0.03) mg/dL Urine Nitrate (NEG) Urine Bilirubin (NEG) mg/dL Urine Urobilinogen (NEG) mg/dL Ur Leukocyte Esterase (NEG) /uL Ur Culture Indicated? 07/21/16 07/21/16 07/21/16 Range/Units 02:04 05:56 06:49 WBC (4.5-11.0) K/mcL RBC (4.00-5.20) M/mcL Hgb (12.0-15.0) g/dL Hct (36.0-48.0) % MCV (80.0-100.0) fL MCH (26.0-34.0) pg MCHC (31.0-36.0) g/dL RDW (11.5-14.5) % Plt Count (140-440) K/mcL MPV (7.4-10.4) fL Gran % (38.0-78.0) % Lymph % (Auto) (15.5-49.0) % [place] % (Auto) (1.0-12.0) % Eos % (Auto) (0.0-7.0) % Baso % (Auto) (0.0-2.0) % Gran # (1.8-8.0) K/mcL Lymph # (1.5-4.8) K/mcL [place] # (0.1-0.9) K/mcL Eos # (0.0-0.7) K/mcL Baso # (0.0-0.3) K/mcL Sodium 143 TNP (133-145) mmol/L Potassium 3.1 L TNP (3.3-5.1) mmol/L Chloride 105 TNP (96-108) mmol/L Carbon Dioxide 25 TNP (22-30) mmol/L Anion Gap 13.0 TNP (8-16) BUN 16 TNP (6-20) mg/dl Creatinine 0.8 TNP (0.6-1.1) mg/dl GFR Calculation 80 TNP Glucose 84 TNP (70-105) mg/dL Uric Acid 0.8 L TNP (2.5-8.0) mg/dL Calcium 8.3 L TNP (8.6-10.4) mg/dl Ionized Calcium [place] (1.16-1.32) mmol/L Phosphorus 3.6 TNP (2.7-4.5) mg/dL Magnesium 2.5 TNP (1.6-2.5) mg/dL Total Bilirubin < 0.2 TNP (0.0-1.0) mg/dL Direct Bilirubin < 0.2 TNP (0.0-0.3) mg/dL GGT 15 TNP (5-36) U/L AST 21 TNP (0-37) U/l ALT 17 TNP (0-40) U/l Alkaline Phosphatase 80 TNP (39-117) U/L Lactate Dehydrogenase 258 H TNP (94-250) U/L Troponin T (0-0.03) ng/ml Total Protein 5.9 TNP (5.9-8.4) gm/dL Albumin 3.7 TNP (3.2-5.2) gm/dL Globulin 2.2 TNP (2.2-3.7) gm/dL Albumin/Globulin Ratio 1.7 TNP (1.0-2.3) Triglycerides 78 TNP (<150) mg/dl 25-OH Vitamin D Total (>=30) ng/mL Urine Color Yellow Urine Appearance Clear Urine pH 5.0 (5.0-9.0) Ur Specific [place] 1.019 (1.000-1.035) Urine Protein Neg (NEG) mg/dL Urine Glucose (UA) Negative (NEG) mg/dL Urine Ketones 5/tr A (NEG) mg/dL Urine Occult Blood Neg (<0.03) mg/dL Urine Nitrate Neg (NEG) Urine Bilirubin Neg (NEG) mg/dL Urine Urobilinogen Neg (NEG) mg/dL Ur Leukocyte Esterase Neg (NEG) /uL Ur Culture Indicated? No 07/22/16 07/22/16 Range/Units 04:15 04:15 WBC (4.5-11.0) K/mcL RBC (4.00-5.20) M/mcL Hgb (12.0-15.0) g/dL Hct (36.0-48.0) % MCV (80.0-100.0) fL MCH (26.0-34.0) pg MCHC (31.0-36.0) g/dL RDW (11.5-14.5) % Plt Count (140-440) K/mcL MPV (7.4-10.4) fL Gran % (38.0-78.0) % Lymph % (Auto) (15.5-49.0) % [place] % (Auto) (1.0-12.0) % Eos % (Auto) (0.0-7.0) % Baso % (Auto) (0.0-2.0) % Gran # (1.8-8.0) K/mcL Lymph # (1.5-4.8) K/mcL [place] # (0.1-0.9) K/mcL Eos # (0.0-0.7) K/mcL Baso # (0.0-0.3) K/mcL Sodium 141 (133-145) mmol/L Potassium 3.6 (3.3-5.1) mmol/L Chloride 103 (96-108) mmol/L Carbon Dioxide 22 (22-30) mmol/L Anion Gap 16.0 (8-16) BUN 13 (6-20) mg/dl Creatinine 0.6 (0.6-1.1) mg/dl GFR Calculation 99 Glucose 83 (70-105) mg/dL Uric Acid 1.0 L (2.5-8.0) mg/dL Calcium 8.0 L (8.6-10.4) mg/dl Ionized Calcium [place] 1.11 L (1.16-1.32) mmol/L Phosphorus 2.4 L (2.7-4.5) mg/dL Magnesium 2.0 (1.6-2.5) mg/dL Total Bilirubin < 0.2 (0.0-1.0) mg/dL Direct Bilirubin < 0.2 (0.0-0.3) mg/dL GGT 12 (5-36) U/L AST 20 (0-37) U/l ALT 20 (0-40) U/l Alkaline Phosphatase 71 (39-117) U/L Lactate Dehydrogenase 227 (94-250) U/L Troponin T (0-0.03) ng/ml Total Protein 5.4 L (5.9-8.4) gm/dL Albumin 3.1 L (3.2-5.2) gm/dL Globulin 2.3 (2.2-3.7) gm/dL Albumin/Globulin Ratio 1.3 (1.0-2.3) Triglycerides 87 (<150) mg/dl 25-OH Vitamin D Total 10.91 L (>=30) ng/mL Urine Color Urine Appearance Urine pH (5.0-9.0) Ur Specific [place] (1.000-1.035) Urine Protein (NEG) mg/dL Urine Glucose (UA) (NEG) mg/dL Urine Ketones (NEG) mg/dL Urine Occult Blood (<0.03) mg/dL Urine Nitrate (NEG) Urine Bilirubin (NEG) mg/dL Urine Urobilinogen (NEG) mg/dL Ur Leukocyte Esterase (NEG) /uL Ur Culture Indicated? Disposition Clinical Impression: Weakness, Multiple sclerosis Disposition: Xfer As Inpt ([facility]) Condition: Fair
== END 2016-07-28 13:13 | DRG 280 ==
LOC: ED 23:40 → MEDSUR 23:40 → ICU 07-24 16:15
PROVIDERS: ADMIT Internal Medicine; ATTEND Internal Medicine